=== PATIENT | male | born 1945 | race Caucasian/White ===

== ENCOUNTER 2024-03-21 09:52 | Inpatient (IN) | payer OTHER, MEDICARE, SELFPAY ==
[2024-03-21] VITALS (119 sets, daily range): BP systolic 73–135; BP diastolic 36–90; PULSE 66–101; RESP 14–26; TEMP 36.6–36.9; O2SAT 88–100; BMI 42.0
--- NOTE | 2024-03-21 09:58 | ECG_ITS ---
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 Measurements Intervals [place] Rate: 87 P: 0 [place]: 0 QRS: 79 QRSD: 172 T: 16 QT: 390 QTc: 472 Interpretive Statements ATRIAL FIBRILLATION RIGHT BUNDLE BRANCH BLOCK [120+ ms QRS DURATION, UPRIGHT V1, 40+ ms S IN I/aVL/V4/V5/V6] No previous ECG available for comparison Electronically Signed On 03-21-2024 11:17:43 CDT by Kt Huntley M.D. [email or web address] [facility] [email or web address].[employer]/store/[id number] f
--- NOTE | 2024-03-21 10:10 | ECG_ITS ---
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 Measurements Intervals [place] Rate: 84 P: 0 [place]: 0 QRS: 78 QRSD: 171 T: 36 QT: 426 QTc: 505 Interpretive Statements ATRIAL FIBRILLATION RIGHT BUNDLE BRANCH BLOCK [120+ ms QRS DURATION, UPRIGHT V1, 40+ ms S IN I/aVL/V4/V5/V6] No previous ECG available for comparison Electronically Signed On 03-21-2024 11:15:07 CDT by Kt Huntley M.D. [id number] f
--- NOTE | 2024-03-21 10:16 | XR_ITS ---
WS: [id number] XR chest 1V portable [id number] REASON FOR EXAM: dyspnea/cough FINDINGS: Endotracheal tube and nasogastric tube are in proper position. Moderate tortuosity and ectasia of the thoracic aorta. The heart is not significantly enlarged. Mild prominence of the central pulmonary veins. Lungs are hypoexpanded with elevation of both hemidiaphragms most notably on the right. There are interstitial and alveolar lung opacities in the left lower lung field with blunting of the left costophrenic angle. XR/XR chest 1V portable [id number] IMPRESSION: Abnormality in the left lower hemithorax which could represent subacute or acut e pneumonitis. No definite abnormality in the right lung, however portion of the right lung is not included on the examination.
[2024-03-21] MEDS: etomidate 2 mg/mL INJ SDV 10 mL 30 MG IVP (10:23)
[2024-03-21] MEDS: succinylcholine 20 mg/mL SDV 10mL 130 MG IVP (10:24)
[2024-03-21] MEDS: fentaNYL 1,000 MCG/100 ML BAG 5 MCG IV (10:38)
[2024-03-21] MEDS: midazolam hcl 100 MG/100 ML BAG IV (10:39)
--- NOTE | 2024-03-21 10:40 | ED_ITS ---
HPI - Weakness 2 General: Chief complaint: Weakness Stated complaint: weakness Time Seen by Provider: 03/21/24 09:56 History of Present Illness: 78-year-old male presents emergency room complaining of generalized weakness he is unable to stand. When I came to the room patient is on 15 L by nasal cannula he is obtunded. He is tachypneic and difficult to arouse. He denies any chest pain. On 15 L/min by nonrebreather patient has improved desat to the mid 90s but is still breathing 26-28 times per minute initially. 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, medications, co2 retention and pulmonary embolism History of shingles History of ileus post-op anesthesia/opiod related History of prostate cancer History of infection due to extended spectrum beta lactamase (ESBL) producing bacteria klebsiella History of diverticulitis Basal cell carcinoma back History of GI bleed History of kidney stones Spinal stenosis, cervical region C 6/7 Spinal stenosis at L4-L5 level History of pulmonary embolism Right bundle branch block Spondylolisthesis at L4-L5 level Sleep apnea History of gastritis History of prostatitis Psoriasis Macular degeneration Hx of Penelope thyroiditis History of anesthesia reaction Essential (primary) hypertension Dupuytren contracture of both hands Diabetic neuropathy Diabetes mellitus, type II History of cystitis COPD (chronic obstructive pulmonary disease) Compression fracture of L1 vertebra Bladder dysfunction Acquired central alveolar hypoventilation syndrome Atrial fibrillation and flutter Arthritis GERD (gastroesophageal reflux disease) Surgical History Orthopedic aftercare stem cell procedure right knee 2016 History of surgery on integumentary structure (2006) fatty tumor removal from back History of surgery on integumentary structure (1961) submucous resection History of surgery (2015) gluteus medius repair with gluteus naomy right hip S/P Botox injection bladder 2017, 2018, 2019 Status post right foot surgery (1977) bone resection History of incision and drainage (2017) left knee 2018 post knee replacement History of cataract surgery (2015) History of cardiac radiofrequency ablation (2013) History of hand surgery (2013) right hand History of lithotripsy ESWL 2011, 2012 Status post left foot surgery (2011) left great toe Hx of LASIK (2007) History of carpal tunnel release bilateral, right x 2 2011 & 2013, left 2007 Status post trigger finger release (2005) History of repair of right rotator cuff History of arthroscopy of left knee (2004) meniscal tear History of surgery on right wrist (2002) fracture repair and fusion 2002 History of cholecystectomy (2001) History of bowel resection (1999) History of facial surgery (1989) cyst removal History of esophageal surgery (1985) schatzki ring repair History of ventral hernia repair (1984) History of laminectomy L4/5 1975, 1997 History of appendectomy (1961) History of tonsillectomy and adenoidectomy (1954) Status post total bilateral knee replacement left 2014, right 2018 History of left shoulder replacement (11/2022) Physical Exam 2 HENMT: COMMON NORMALS: normocephalic, atraumatic and hearing grossly normal bilaterally HEAD & SCALP: normocephalic and atraumatic Resp: EFFORT & INSPECTION: Yes decreased respiratory effort AUSCULTATION: c rackles and diminished lung sounds Cardio: COMMON NORMALS: regular rate and No murmurs present (Cardio) RATE: regular rate RHYTHM: abnormal rhythm irregularly irregular GI: COMMON NORMALS: Soft to palpation and No hepatosplenomegaly present A USCULTATION: Yes normoactive bowel sounds PALPATION: Yes Soft to palpation, No Tenderness to palpation present (GI), No Guarding due to palpation present (GI) and Yes No hepatosplenomegaly present Extremity: COMMON NORMALS: normal to inspection, capillary refill normal and no calf tenderness Skin: COMMON NORMALS: no rashes or lesions noted GENERAL SKIN EXAM: no rashes or lesions noted Procedures Intubation sedative: Etomidate Mg Given: 30 paralytic: Succinylcholine Mg Given: 120 Laryngoscope: fiber optic video scope ET Tube Size: 8.5 ET Tube Uncuffed: No Tube Secured Depth (cm): 23 Tube Secured Location: teeth Tube Placement Confirmation: visualized tube passing through cords, equal breath sounds bilaterally, no breath sounds over epigastrium and confirmation by capnometry Patient Tolerated Procedure: well Intubation Complications: none Course 2 Vital Signs: Vital signs: Vital Signs Temperature 98.4 F 03/21/24 09:55 Pulse Rate 78 03/21/24 14:44 Respiratory Rate 19 H 03/21/24 14:15 Blood Pressure 111/69 03/21/24 14:44 Pulse Oximetry 96 03/21/24 14:44 Oxygen Delivery Me thod Mechanical Ventil ation 03/21/24 14:15 Fraction of Inspir ed Oxygen 70 03/21/24 12:37 MDM - Weakness Medical Decision Making Patient presents in severe respiratory distress obtunded requiring 15 L/min he was emergently intubated on arrival RSI with etomidate and succinylcholine and started on fentanyl Versed given ketamine please see reports today she feels well. CT shows bilateral pulmonary emboli possible early pneumonia will start on IV antibiotics discussed with hospitalist will start on Lovenox for his PE. he has a history of PE in the past. Admit to ICU currently on ventilator. Medical Records I reviewed the patient's medical records. Lab Data I reviewed the patient's lab results. 03/21/24 11:05 03/21/24 10:50 Radiology Impressions Chest X-Ray 03/21/24 10:16 IMPRESSION: Abnormality in the left lower hemithorax which could represent subacute or acute pneumonitis. No definite abnormality in the right lung, however portion of the right lung is not included on the examination. Chest CTA 03/21/24 12:00 IMPRESSION: 1. Difficult evaluation of the pulmonary arterial system due to motion and extensive streak artifact. Small occlusive pulmonary emboli are highly suspected in the bilateral lower lobe subsegmental branches and I question small occlusive emboli in the right upper lobe subsegmental branches. 2. Question trace bilateral pleural effusions. 3. Consolidations in the bilateral lower lobes. Combination of atelectasis and/or pneumonia should be considered. 4. Bilateral bronchial wall thickening. Acute/chronic bronchitis or reactive airways disease in the differential. 5. Suggestion of mild right heart strain. ADDENDUM: 03/21/24 [id number] I was informed by the [facility] team that MICHAEL RAMOS has the report and has no further questions. Laboratory Results WBC 10.88 10^3/uL (3.29-11.43) 03/21/24 11:05 RBC 3.90 10^6/uL (3.85-5.65) 03/21/24 11:05 Hgb 12.50 g/dL (11.27-16.99) 03/21/24 11:05 Hct 40.7 % (37-53) 03/21/24 11:05 MCV 104.4 fl (82-101) H 03/21/24 11:05 MCH 32.1 pg (27-33) 03/21/24 11:05 MCHC 30.7 g/dL (30-55) 03/21/24 11:05 RDW 14.6 % (12.1-15.1) 03/21/24 11:05 Plt Count 210 10^3/cmm (157-399) 03/21/24 11:05 MPV 10.7 fL (7.4-10.4) H 03/21/24 11:05 Neut % (Auto) 83.3 % 03/21/24 11:05 Lymph % (Auto) 6.4 % 03/21/24 11:05 Scott % (Auto) 9.4 % 03/21/24 11:05 Eos % (Auto) 0.1 % 03/21/24 11:05 Baso % (Auto) 0.4 % 03/21/24 11:05 Neut # (Auto) 9.07 10^3/uL (1.8-7.7) H 03/21/24 11:05 Lymph # (Auto) 0.7 10^3/uL (0.8-4.8) L 03/21/24 11:05 Scott # (Auto) 1.0 10^3/uL (0.2-0.9) H 03/21/24 11:05 Eos # (Auto) 0.0 10^3/uL (0.0-0.8) 03/21/24 11:05 Baso # (Auto) 0.0 10^3/uL (0.0-0.1) 03/21/24 11:05 Nucleated RBC % (auto) 0 % 03/21/24 11:05 Nucleated RBCs # 0.0 /100WBC 03/21/24 11:05 Specimen Type Arterial 03/21/24 10:35 Sample Site Radial, left 03/21/24 10:35 ABG pH 7.24 (7.35-7.45) L 03/21/24 10:35 ABG pCO2 64.4 mmHg (35-45) H* 03/21/24 10:35 ABG pO2 103.0 mmHg (80.0-100.0) H 03/21/24 10:35 ABG PO2/FiO2 Ratio 103 03/21/24 10:35 ABG HCO3 27.8 mmol/L (22-26) H 03/21/24 10:35 ABG O2 Saturation 97.1 03/21/24 10:35 ABG Base Excess -0.6 mmol/L (-2.0-2.0) 03/21/24 10:35 Lyndon Test Pos 03/21/24 10:35 A-a O2 Gradient 70.0 mmHg (5-10) H 03/21/24 10:35 Hematocrit 35.4 % (42-52) L 03/21/24 10:35 Hgb O2 Saturation 94.9 % (95-100) L 03/21/24 10:35 Carboxyhemoglobin 1.1 %THgb (0.4-20.1) 03/21/24 10:35 Methemoglobin 1.1 % (0.4-1.5) 03/21/24 10:35 Total Hemoglobin 11.6 g/dL (14-18) L 03/21/24 10:35 Sodium 143.0 mmol/L (131-143) 03/21/24 10:35 Potassium 4.0 mmol/L (3.5-5.0) 03/21/24 10:35 Glucose 138.0 mg/dL (70-115) H 03/21/24 10:35 Ionized Calcium 1.3 mmol/L (1.1-1.4) 03/21/24 10:35 O2 Delivery Device Vent 03/21/24 10:35 FiO2 100.0 % 03/21/24 10:35 Tidal Volume 0.50 03/21/24 10:35 PEEP 8.0 cmH20 03/21/24 10:35 Budget Director ID Cak 03/21/24 10:35 Sodium 140 mmol/L (136-145) 03/21/24 10:50 Potassium 4.2 mmol/L (3.5-5.1) 03/21/24 10:50 Chloride 103 mmol/L (98-107) 03/21/24 10:50 Carbon Dioxide 19 mmol/L (22-29) L 03/21/24 10:50 Anion Gap 22.2 (5-19) H 03/21/24 10:50 BUN 28 mg/dL (8-23) H 03/21/24 10:50 Creatinine 1.5 mg/dL (0.7-1.2) H 03/21/24 10:50 GFR Calculation Not Reportable 03/21/24 10:50 Glucose 140 mg/dL (65-115) H 03/21/24 10:50 Calculated Osmolality 298 mOsm/kg (285-295) H 03/21/24 10:50 Lactic Acid 2.2 mmol/L (0.5-2.2) 03/21/24 11:05 Lactic Acid (Sepsis) 0.8 mmol/L (0.5-2.2) 03/21/24 13:59 Calcium 9.2 mg/dL (8.5-10.5) 03/21/24 10:50 Magnesium 2.3 mg/dL (1.7-2.3) 03/21/24 10:50 Total Bilirubin 0.3 mg/dL (0.15-1.2) 03/21/24 10:50 AST 53 U/L (0-40) H 03/21/24 10:50 ALT 76 U/L (0-41) H 03/21/24 10:50 Alkaline Phosphatase 156 U/L (40-130) H 03/21/24 10:50 Creatine Kinase 131 U/L (39-308) 03/21/24 10:50 Troponin T Baseline 52 ng/L (0-15) H 03/21/24 10:50 Troponin T 120 Minute 49.58 ng/L (0-15) H 03/21/24 12:51 Delta Troponin T -2.42 ABS# (0-10) L 03/21/24 12:51 NT-Pro-B Natriuret Pep 3674 pg/mL (0-450) H 03/21/24 10:50 Total Protein 7.2 g/dL (6.6-8.7) 03/21/24 10:50 Albumin 3.9 g/dL (3.5-5.2) 03/21/24 10:50 Globulin 3.3 g/dL (1.3-4.6) 03/21/24 10:50 Lipase 50 U/L (13-60) 03/21/24 10:50 Urine Color Yellow (Yellow) 03/21/24 11:24 Urine Appearance Clear (CLEAR) 03/21/24 11:24 Urine pH 6.5 (5-7) 03/21/24 11:24 Ur Specific [place] 1.015 (1.005-1.030) 03/21/24 11:24 Urine Protein 1+ (Negative) H 03/21/24 11:24 Urine Glucose (UA) 3+ (Normal) H 03/21/24 11:24 Urine Ketones Negative (Negative) 03/21/24 11:24 Urine Blood Neg (Negative) 03/21/24 11:24 Urine Nitrate Negative (Negative) 03/21/24 11:24 Urine Bilirubin Neg (Negative) 03/21/24 11:24 Urine Urobilinogen Norm mg/dL (Negative) 03/21/24 11:24 Ur Leukocyte Esterase Negative (Negative) 03/21/24 11:24 Urine RBC 0-2 /hpf (0-2) 03/21/24 11:24 Urine WBC 0-5 /hpf (0-5) 03/21/24 11:24 Ur Squamous Epith Cells 0-5 /hpf (0-5) 03/21/24 11:24 Amorphous Sediment Not Reportable 03/21/24 11:34 Urine Bacteria None seen /hpf (NONE) 03/21/24 11:24 Hyaline Casts 5.36 /lpf 03/21/24 11:24 Serum Ketones Negative (Negative) 03/21/24 11:05 Coronavirus (PCR) Negative (Negative) 03/21/24 11:58 Influenza A (PCR) Negative (Negative) 03/21/24 11:58 Influenza Type B (PCR) Negative (Negative) 03/21/24 11:58 RSV (PCR) Negative (Negative) 03/21/24 11:58 All radiology interpretation(s) finalized by discharge Discharge Plan Discharge Patient Disposition: Admitted As Inpatient Admit Provider: Maribel Gama Clinical Impression: Acute on chronic respiratory failure with hypoxia and hypercapnia, Diabetes mellitus, type II, Pulmonary embolism, bilateral, Atrial fibrillation, Acute exacerbation of chronic obstructive pulmonary disease Condition: Stable Coding Level of Care Code ED Alterations Tailor for Chg Fwd Related Data Home Medications Medication Instructions Recorded Confirmed acetazolamide 500 mg 500 mg PO DAILY PRN high 03/21/24 03/21/24 capsule,extended release altitude/airplane travel allopurinol 300 mg tablet 300 mg PO DAILY 03/21/24 03/21/24 carvedilol 12.5 mg tablet 12.5 mg PO BID 03/21/24 03/21/24 cephalexin 500 mg capsule 500 mg PO TID 03/21/24 03/21/24 diltiazem HCl 240 mg 250 mg PO DAILY 03/21/24 03/21/24 capsule,extended release 24 hr empagliflozin 10 mg tablet 10 mg PO DAILY 03/21/24 03/21/24 (Jardiance) famotidine 40 mg tablet 40 mg PO QPM 03/21/24 03/21/24 fesoterodine 8 mg tablet,extended 8 mg PO DAILY 03/21/24 03/21/24 release 24 hr fluocinonide 0.05 % topical 1 applic topical PRN PRN atopic 03/21/24 03/21/24 ointment dermatitis fluticasone fur. 100 mcg-umeclid 1 inh inhalation DAILY 03/21/24 03/21/24 62.5 mcg-vilant 25 mcg inhalat.powder (Trelegy Ellipta) fluticasone propionate 50 2 spray intranasal DAILY 03/21/24 03/21/24 mcg/actuation nasal spray,suspension gabapentin 600 mg tablet 600 mg PO QID 03/21/24 03/21/24 levothyroxine 125 mcg tablet 250 mcg PO QAM 03/21/24 03/21/24 metformin 500 mg tablet 500 mg PO QID 03/21/24 03/21/24 metoclopramide HCl 5 mg tablet 5 mg PO TID 03/21/24 03/21/24 mupirocin 2 % topical ointment 1 applic topical BID 03/21/24 03/21/24 omeprazole 40 mg capsule,delayed 40 mg PO DAILY 03/21/24 03/21/24 release oxycodone-acetaminophen 10 mg-325 1 tab PO .Q4-6H PRN Pain 03/21/24 03/21/24 mg tablet potassium citrate 10 mEq (1,080 10 meq PO DAILY 03/21/24 03/21/24 mg) tablet,extended release quetiapine 25 mg tablet 25 mg PO BEDTIME 03/21/24 03/21/24 rosuvastatin 40 mg tablet 40 mg PO DAILY 03/21/24 03/21/24 semaglutide 0.25 mg or 0.5 mg (2 0.25 mg SUBCUT Q7D 03/21/24 03/21/24 mg/3 mL) subcutaneous pen injector ([employer] (TU[employer])empSemantify) torsemide 20 mg tablet 20 mg PO QAM 03/21/24 03/21/24 valsartan 80 1 tab PO QAM 03/21/24 03/21/24 mg-hydrochlorothiazide 12.5 mg tablet vibegron 75 mg tablet (Gemtesa) 75 mg PO DAILY 03/21/24 03/21/24 Allergies Allergy/AdvReac Type Severity Reaction Status Date / Time dulaglutide [From [facility]] Allergy Unknown Verified 03/21/24 10:09
[2024-03-21 10:46] LABS: ABG PH Result 7.24 (7.35-7.45); Arterial Blood Gas Hematocrit 35.4 % (42-52); Base Excess ABG -0.6 mmol/L (-2.0-2.0); Blood Gas Allen Test Pos; Blood Gas Operator Identificat CAK; Blood Gas Sample Site Radial, left; Blood Gas Sample Type Arterial; Carboxyhemoglobin 1.1 %THgb (0.4-20.1); HCO3 ABG 27.8 mmol/L (22-26); HGB O2 Sat 94.9 % (95-100); Ionized Calcium Level - ABG 1.3 mmol/L (1.1-1.4); Methemoglobin 1.1 % (0.4-1.5); Oxygen Device VENT; Oxygen Saturation ABG 97.1; PO2 FiO2 Ratio Arterial Blood 103; Total Hemoglobin 11.6 g/dL (14-18)
[2024-03-21 10:47] LABS: ABG PCO2 64.4 mmHg (35-45)
--- NOTE | 2024-03-21 10:56 | PC.PHAR ---
Pt gets medications via [facility]. Spoke with [facility], who verified all medications, directions, dosage. Days supply and Last refills added in notes
[2024-03-21 11:11] LABS: Basophils % 0.4 %; Eosinophils % 0.1 %; Hematocrit 40.7 % (37-53); Lymphocytes # 0.7 10^3/uL (0.8-4.8); Lymphocytes % 6.4 %; Mean Corpuscular HGB Conc 30.7 g/dL (30-55); Mean Corpuscular Hemoglobin 32.1 pg (27-33); Mean Corpuscular Volume 104.4 fl (82-101); Mean Platelet Volume 10.7 fL (7.4-10.4); Monocytes % 9.4 %; Neutrophils # 9.07 10^3/uL (1.8-7.7); Neutrophils % 83.3 %; Nucleated Red Blood Cells % 0 %; Platelet Count 210 10^3/cmm (157-399); Red Cell Distribution Width 14.6 % (12.1-15.1); White Blood Count 10.88 10^3/uL (3.29-11.43)
[2024-03-21] MEDS: sodium chloride 0.9% 1,000 ML 999 ML IV (11:13)
[2024-03-21 11:22] LABS: Troponin(5th) Baseline 52 ng/L (0-15)
[2024-03-21] MEDS: ketamine 100 mg/mL Inj 5 mL 150 MG IV (11:30)
[2024-03-21 11:33] LABS: Lactic Sepsis W/Reflex 2.2 mmol/L (0.5-2.2)
[2024-03-21 11:34] LABS: Ketone (Acetest) Serum Negative (Negative)
[2024-03-21 11:39] LABS: Charge for UA Resulting for Rev
[2024-03-21 12:00] LABS: Bacteria Urine None Seen /hpf; Hyaline Casts Urine 5.36 /lpf; RBC Urine 0-2 /hpf (0-2); Squamous Epithelial Cell Urine 0-5 /hpf (0-5); WBC Urine 0-5 /hpf (0-5)
--- NOTE | 2024-03-21 12:00 | CTR_ITS ---
PROCEDURE INFORMATION: Exam: CTA Chest With Contrast Exam date and time: 03/21/2024 1:19 PM Age: 78 years old Clinical indication: Shortness of breath; Additional info: Resp failure TECHNIQUE: Imaging protocol: Computed tomographic angiography of the chest with contrast. Exam focused on the arteries. 3D rendering (Not supervised by radiologist): MIP and/or 3D reconstructed images were created by the technologist. Radiation optimization: All CT scans at this facility use at least one of these dose optimization techniques: automated exposure control; mA and/or kV adjustment per patient size (includes targeted exams where dose is matched to clinical indication); or iterative reconstruction. Contrast material: [id number]; Contrast volume: 100 ml; Contrast route: INTRAVENOUS (IV); COMPARISON: CR XR chest 1V portable [id number] 03/21/2024 10:32 AM RADIATION DOSE METRICS: Total DLP (mGy-cm): 539 FINDINGS: Limitations: Extensive streak artifact. Tubes, catheters and devices: Endotracheal tube tip is 5.3 cm above the franck. Nasogastric tube tip projecting in the mid stomach. Pulmonary arteries: Difficult evaluation of the pulmonary arterial system due to motion and extensive streak artifact. Small occlusive pulmonary emboli are highly suspected in the bilateral lower lobe subsegmental branches and I question small occlusive emboli in the right upper lobe subsegmental branches. Aorta: Ectasia of the mid ascending thoracic aorta measuring 4.2 cm. Moderate diffuse calcific atherosclerosis of the aorta. Lungs: Consolidations in the bilateral lower lobes. Bilateral bronchial wall thickening. Platelike atelectasis in the right lung base. Subpleural atelectasis of the dependent portions of the lungs. Pleural spaces: Question trace bilateral pleural effusions. Heart: Calcifications of the aortic valve annulus. Moderate cardiomegaly. Heart RV/LV ratio: 1. Coronary arteries: There is moderate atherosclerotic calcification of the coronary arteries. Lymph nodes: Unremarkable. No enlarged lymph nodes. Liver: Slightly nodular liver contour, concerning for early hepatocellular disease. Correlation with pertinent labs is recommended. Gallbladder and biliary ducts: Cholecystectomy. Bones/joints: Left shoulder arthroplasty. Bone demineralization. Severe multilevel degenerative changes of the spine. There are diffuse enthesopathic changes consistent with benign diffuse idiopathic skeletal hyperostosis (DISH). No acutely displaced fractures. Soft tissues: Unremarkable. CT/CT angio chest PE protcl [id number] IMPRESSION: 1. Difficult evaluation of the pulmonary arterial system due to motion and extensive streak artifact. Small occlusive pulmonary emboli are highly suspected in the bilateral lower lobe subsegmental branches and I question small occlusive emboli in the right upper lobe subsegmental branches. 2. Question trace bilateral pleural effusions. 3. Consolidations in the bilateral lower lobes. Combination of atelectasis and/or pneumonia should be considered. 4. Bilateral bronchial wall thickening. Acute/chronic bronchitis or reactive airways disease in the differential. 5. Suggestion of mild right heart strain.
--- NOTE | 2024-03-21 12:17 | ECG_ITS ---
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 Measurements Intervals [place] Rate: 73 P: 0 SC: 0 QRS: 81 QRSD: 170 T: 47 QT: 419 QTc: 462 Interpretive Statements ATRIAL FIBRILLATION RIGHT BUNDLE BRANCH BLOCK [120+ ms QRS DURATION, UPRIGHT V1, 40+ ms S IN I/aVL/V4/V5/V6] Compared to ECG 03/21/2024 10:10:03 No significant changes Electronically Signed On 03-22-2024 7:51:44 CDT by Kt Huntley M.D. [id number]
[2024-03-21 12:26] LABS: Alanine Aminotransferase 76 U/L (0-41); Albumin Level 3.9 g/dL (3.5-5.2); Alkaline Phosphatase 156 U/L (40-130); Aspartate Amino Transferase 53 U/L (0-40); Blood Urea Nitrogen 28 mg/dL (8-23); Calcium 9.2 mg/dL (8.5-10.5); Carbon Dioxide 19 mmol/L (22-29); Chloride 103 mmol/L (98-107); Creatine Phosphokinase 131 U/L (39-308); Creatinine Clr Calc Pharmacy 60.7476; Globulin 3.3 g/dL (1.3-4.6); Glucose 140 mg/dL (65-115); Lipase 50 U/L (13-60); Magnesium 2.3 mg/dL (1.7-2.3); NT Pro B Type Natriuretic Pept 3674 pg/mL (0-450); Osmolality Calculated 298 mOsm/kg (285-295); Sodium 140 mmol/L (136-145); Total Bilirubin 0.3 mg/dL (0.15-1.2); Total Protein 7.2 g/dL (6.6-8.7)
[2024-03-21 12:28] LABS: Anion Gap 22.2 (5-19); Potassium 4.2 mmol/L (3.5-5.1)
[2024-03-21 12:37] LABS: Urine Appearance Clear (CLEAR); Urine Color Yellow (Yellow); pH Urine 6.5 (5-7)
[2024-03-21 12:38] LABS: Add Urine Culture? No; Bilirubin Urine Neg (Negative); Blood Urine Neg (Negative); Glucose Urine UA 3+ (Normal); Ketones Urine Negative (Negative); Leukocyte Esterase Urine Negative (Negative); Nitrate Urine Negative (Negative); Protein Urine 1+ (Negative); Specific Gravity, Urine 1.015 (1.005-1.030); Urobilinogen Urine Norm (Negative)
[2024-03-21 12:43] LABS: Covid PCR NEGATIVE (Negative); Influenza A NEGATIVE (Negative); Influenza B NEGATIVE (Negative); Respiratory Syncytial Virus Ce NEGATIVE (Negative)
[2024-03-21 12:56] LABS: Reflex Lactate Order REFLEX LACTIC ORDERD
[2024-03-21 13:15] LABS: Troponin 5 2HR 49.58 ng/L (0-15)
[2024-03-21 13:19] LABS: Troponin 5 2HR Delta -2.42 ABS# (0-10)
[2024-03-21] MEDS: iohexol 350 mg/mL 500 mL Btl (per mL) IV (13:22)
--- NOTE | 2024-03-21 13:44 | P.HP_ITS ---
Providers/Chief Complaint 2 Admitting Physician: Maribel Gama MD Primary Care Provider: Dr Ritchie Anne [phone] [place] Chief Complaint: weakness History of Present Illness Leyda Meza is a 78 year old male who presented to the emergency room via EMS with weakness, difficulty breathing. Initial oxygen saturations in the 70s. He was placed on a nonrebreather with improvement. Mentation did not significantly improve despite improvement in oxygen saturations and he was subsequently intubated in the emergency room due to obtundation and hypoxemia. ABG done just after intubation showed 7.24/64.4/103/27.8. History is obtained from Mr. Meza's grandson Who is here as well as from his who is in [place].. and Leyda are from [place] and up here in the area for a hunting trip. They flew on Thursday, stayed in [place] Thursday night and then drove to [place] on Thursday. They did go out hunting on Thursday night, but Leyda was in 4x4 and not walking around much at all. From talking with it sounds like Leyda may have gotten his medications mixed up just a little bit the last couple of days. Sounds like he took both his daytime medicines for today and his nighttime medicines for last evening last night. He did take some medications this morning also. Leyda was not as alert today and was so weak when attempting to get up this morning that it required more than 1 person to help him. With the degree of weakness he was experiencing along with him being lethargic the ambulance was ultimately called. In talking with , it sounds like on Thursday night Mr. Meza's cpap or oxygen were not working correctly. He is on CPAP with oxygen at night usually. He does not require oxygen during the day. His sleep thursday night was poor. The oxygen and cpap set up seemed better last evening when going to bed. Leyda has extensive past medical history as outlined below. Significant findings include history of bilateral PE on chronic anticoagulation, issues with respiratory failure related to medications, CO2 retention and altitude in the past. He has known alveolar hypoventilation syndrome and sleep apnea is already indicated along with COPD. Home medications include several sedating medicines such as oxycodone, quetiapine, alprazolam. Leyda also has significant issues with bowel and bladder function related to history of ileus and prostate cancer. No recent hospitalizations or surgeries. Last known procedure was bladder Botox injection last month. I attempted to contact patient's primary care physician Dr. Ritchie Cullen but had to leave a voicemail. No report of fever. No other symptoms reported. Given prior history CTA of the chest was done. This showed suspected small occlusive pulmonary emboli in bilateral lower lobes subsegmentally as well as potentially in the right upper lobe subsegmental branches. Study was limited due to motion and streak artifact. Consolidations in both lower lobes combination of atelectasis and/or pneumonia considered along with bronchial wall thickening and suggestions of right heart strain. Treatment dose Lovenox was administered and patient is being admitted to the intensive care unit. Past medical history and medication list were obtained from printed papers supplied by and reviewed with patient's . Review of Systems 2 General: Reports: ROS unobtainable due to endotracheal tube, ROS unobtainable due to medical condition and Other (ROS as per HPI or as otherwise noted here) Medications/Allergies Home Medications Medication Instructions Recorded Confirmed Last Taken Type A-Reds2 1 tab PO BID 03/21/24 03/21/24 Unknown History Magnesium Citrate Gummie 204 mg PO DAILY 03/21/24 03/21/24 Unknown History Vitamin C Gummie 750 mg PO DAILY@12 03/21/24 03/21/24 Unknown History acetazolamide 500 mg 500 mg PO DAILY PRN high 03/21/24 03/21/24 Unknown History capsule,extended release altitude/airplane travel albuterol sulfate 2.5 mg/3 mL 2.5 mg inhalation QID PRN 03/21/24 03/21/24 Unknown History (0.083 %) solution for nebulization Shortness Of Breath albuterol sulfate 90 mcg/actuation 2 puff inhalation QID PRN Sleep 03/21/24 03/21/24 Unknown History aerosol inhaler allopurinol 300 mg tablet 300 mg PO DAILY 03/21/24 03/21/24 Unknown History alprazolam 0.5 mg tablet 0.5 mg PO BEDTIME PRN Sleep 03/21/24 03/21/24 Unknown History amoxicillin 500 mg capsule 2,000 mg PO DIRECTED PRN before 03/21/24 03/21/24 Unknown History denatl procedures aspirin 81 mg tablet,delayed 81 mg PO BEDTIME 03/21/24 03/21/24 Unknown History release carvedilol 12.5 mg tablet 12.5 mg PO BID 03/21/24 03/21/24 Unknown History cephalexin 500 mg capsule 500 mg PO TID 03/21/24 03/21/24 Unknown History cholecalciferol (vitamin D3) 50 50 mcg PO DAILY 03/21/24 03/21/24 Unknown History mcg (2,000 unit) capsule (Vitamin D3) colchicine 0.6 mg tablet 0.3 mg PO DAILY PRN gout 03/21/24 03/21/24 Unknown History cyanocobalamin (vitamin B-12) 1,000 mcg PO DAILY 03/21/24 03/21/24 Unknown History 1,000 mcg tablet (Vitamin B-12) diclofenac sodium 1 % topical gel 2 g topical QID PRN neuropathy pain 03/21/24 03/21/24 Unknown History diltiazem HCl 240 mg 240 mg PO DAILY 03/21/24 03/21/24 Unknown History capsule,extended release 24 hr docusate sodium 50 mg capsule See Rx Instructions .Route .COMPLEX 03/21/24 03/21/24 Unknown History empagliflozin 10 mg tablet 10 mg PO DAILY 03/21/24 03/21/24 Unknown History (Jardiance) famotidine 40 mg tablet 40 mg PO QPM 03/21/24 03/21/24 Unknown History ferrous sulfate 325 mg (65 mg 325 mg PO BID@08,12 03/21/24 03/21/24 Unknown History iron) tablet fesoterodine 8 mg tablet,extended 8 mg PO DAILY 03/21/24 03/21/24 Unknown History release 24 hr fluocinonide 0.05 % topical 1 applic topical BID PRN atopic 03/21/24 03/21/24 Unknown History ointment dermatitis fluticasone fur. 100 mcg-umeclid 1 inh inhalation DAILY 03/21/24 03/21/24 Unknown History 62.5 mcg-vilant 25 mcg inhalat.powder (Trelegy Ellipta) fluticasone propionate 50 2 spray intranasal DAILY 03/21/24 03/21/24 Unknown History mcg/actuation nasal spray,suspension gabapentin 600 mg tablet 600 mg PO QID 03/21/24 03/21/24 Unknown History inulin 2 gram chewable tablet 4 g PO DAILY 03/21/24 03/21/24 Unknown History (Fiber Gummies) ipratropium bromide 42 mcg (0.06 2 spray intranasal BID 03/21/24 03/21/24 Unknown History %) nasal spray levothyroxine 125 mcg tablet 250 mcg PO QAM 03/21/24 03/21/24 Unknown History metformin 500 mg tablet 500 mg PO QID 03/21/24 03/21/24 Unknown History metoclopramide HCl 5 mg tablet 5 mg PO TID 03/21/24 03/21/24 Unknown History milk thistle seed extract 250 mg 250 mg PO TID 03/21/24 03/21/24 Unknown History capsule pysyasshiufo-yomsowoj-fjviqy tablet 1 tab PO DAILY 03/21/24 03/21/24 Unknown History mupirocin 2 % topical ointment 1 applic topical BID 03/21/24 03/21/24 Unknown History omeprazole 40 mg capsule,delayed 40 mg PO DAILY 03/21/24 03/21/24 Unknown History release oxycodone-acetaminophen 10 mg-325 1 tab PO Q4H PRN Pain 03/21/24 03/21/24 Unknown History mg tablet peppermint oil 90 mg 180 mg PO .DINNER 03/21/24 03/21/24 Unknown History capsule,delayed,extended release (IBgard) polyethylene glycol 3350 17 gram 17 g PO DAILY PRN Constipation 03/21/24 03/21/24 Unknown History oral powder packet (Miralax) potassium citrate 10 mEq (1,080 10 meq PO BID 03/21/24 03/21/24 Unknown History mg) tablet,extended release propylene glycol 0.6 % eye drops 1 drp ophthalmic (eye) BID PRN 03/21/24 03/21/24 Unknown History (Systane Complete) itchy yes quetiapine 25 mg tablet 25 mg PO BEDTIME 03/21/24 03/21/24 Unknown History rivaroxaban 20 mg tablet 20 mg PO QPM 03/21/24 03/21/24 Unknown History rosuvastatin 40 mg tablet 40 mg PO BEDTIME 03/21/24 03/21/24 Unknown History semaglutide 0.25 mg or 0.5 mg (2 0.25 mg SUBCUT Q7D 03/21/24 03/21/24 Unknown History mg/3 mL) subcutaneous pen injector (Ozempic) sennosides 8.6 mg capsule (senna) 17.2 mg PO BEDTIME 03/21/24 03/21/24 Unknown History simethicone 125 mg capsule 250 mg PO BEDTIME 03/21/24 03/21/24 Unknown History torsemide 20 mg tablet 20 mg PO QAM 03/21/24 03/21/24 Unknown History valsartan 80 1 tab PO QAM 03/21/24 03/21/24 Unknown History mg-hydrochlorothiazide 12.5 mg tablet vibegron 75 mg tablet (Gemtesa) 75 mg PO BEDTIME 03/21/24 03/21/24 Unknown History zinc gluconate 50 mg tablet 50 mg PO DAILY@12 03/21/24 03/21/24 Unknown History Allergies Allergy/AdvReac Type Severity Reaction Status Date / Time dulaglutide [From [facility]] Allergy Unknown Verified 03/21/24 10:09 Additional Medication Information Pt appears to have possibly mixed up some medications last couple days taking morning ones in evening along with evening one. PFSH Acute 2 PFSH: Medical History (Updated 03/21/24 @ 16:58 by Maribel Gama MD) History of sciatica History of respiratory failure depression from altitude, medications, co2 retention and pulmonary embolism History of shingles History of ileus post-op anesthesia/opiod related History of prostate cancer History of infection due to extended spectrum beta lactamase (ESBL) producing bacteria klebsiella History of diverticulitis Basal cell carcinoma back History of GI bleed History of kidney stones Spinal stenosis, cervical region C 6/7 Spinal stenosis at L4-L5 level History of pulmonary embolism Right bundle branch block Spondylolisthesis at L4-L5 level Sleep apnea uses cpap with oxygen at night History of gastritis History of prostatitis Psoriasis Macular degeneration Hx of Penelope thyroiditis History of anesthesia reaction Essential (primary) hypertension Dupuytren contracture of both hands Diabetic neuropathy Diabetes mellitus, type II History of cystitis COPD (chronic obstructive pulmonary disease) Compression fracture of L1 vertebra Bladder dysfunction Acquired central alveolar hypoventilation syndrome Atrial fibrillation and flutter Arthritis GERD (gastroesophageal reflux disease) Surgical History (Updated 03/21/24 @ 15:56 by Maribel Gama MD) Orthopedic aftercare stem cell procedure right knee 2016 History of surgery on integumentary structure (2006) fatty tumor removal from back History of surgery on integumentary structure (196) submucous resection History of surgery (2015) gluteus medius repair with gluteus naomy right hip S/P Botox injection bladder 2017, 2018, 2019, 2023 (February) Status post right foot surgery (1977) bone resection History of incision and drainage (2017) left knee 2018 post knee replacement History of cataract surgery (2015) History of cardiac radiofrequency ablation (2013) History of hand surgery (2013) right hand History of lithotripsy ESWL 2011, 2012 Status post left foot surgery (2011) left great toe Hx of LASIK (2007) History of carpal tunnel release bilateral, right x 2 2011 & 2013, left 2007 Status post trigger finger release (2005) History of repair of right rotator cuff History of arthroscopy of left knee (2004) meniscal tear History of surgery on right wrist (2002) fracture repair and fusion 2002 History of cholecystectomy (2001) History of bowel resection (1999) History of facial surgery (1989) cyst removal History of esophageal surgery (1985) schatzki ring repair History of ventral hernia repair (1984) History of laminectomy L4/5 1975, 1997 History of appendectomy (1961) History of tonsillectomy and adenoidectomy (1954) Status post total bilateral knee replacement left 2014, right 2018 History of left shoulder replacement (11/2022) Other PFSH information: Supplemental PFS Information: LIV[place] IN [place], in area visiting for hunting trip Had some drinks last night Does not smoke now Vitals/I&O/Wt Last Vital Signs Temp 98.4 F 03/21/24 09:55 Pulse 74 03/21/24 13:00 Resp 16 03/21/24 13:00 BP 105/69 03/21/24 13:00 Pulse Ox 97 03/21/24 13:00 O2 Del Method Mechanical Ventilation 03/21/24 12:00 FiO2 70 03/21/24 12:37 03/20/24 03/21/24 03/21/24 22:59 06:59 14:59 Intake Total 1002.667 / 1002.667 Balance 1002.667 / 1002.667 Weight last 48 hrs Weight 144.696 kg Physical Exam 2 Narrative: Patient is intubated and sedated. Pupils are equal bilaterally. Oropharynx with moist membranes. Neck is supple. Lungs with decreased breath sounds posteriorly, clear anteriorly. Irregular rhythm. distant heart sounds. Abdomen is soft, positive bowel sounds. A few small ecchymoses noted laterally. Aguila catheter is in place with normal external genitalia, clean groin. Thenar wasting noted bilaterally. 2+ pitting edema in the lower extremities. Several anterior calderon bruises and skin tears with dried blood, all small. Has chronic sun exposure changes to her arms and legs. Feet are white by comparison. Brisk capillary refill with faint pulses dorsalis pedis bilaterally. Handgrip equal bilaterally later during the course of my evaluation and care. Urinary Catheter Management: Aguila: Cath Placed During This Visit: yes Urinary Catheter Date of Insertion: 03/21/24 Urinary Catheter Time of Insertion: 11:33 Data 03/21/24 20:10 03/21/24 10:50 Other Labs: Radiology Impressions CTA chest 03/21/2024 IMPRESSION: 1. Difficult evaluation of the pulmonary arterial system due to motion and extensive streak artifact. Small occlusive pulmonary emboli are highly suspected in the bilateral lower lobe subsegmental branches and I question small occlusive emboli in the right upper lobe subsegmental branches. 2. Question trace bilateral pleural effusions. 3. Consolidations in the bilateral lower lobes. Combination of atelectasis and/or pneumonia should be considered. 4. Bilateral bronchial wall thickening. Acute/chronic bronchitis or reactive airways disease in the differential. 5. Suggestion of mild right heart strain. Chest X-Ray 03/21/24 10:16 IMPRESSION: Abnormality in the left lower hemithorax which could represent subacute or acute pneumonitis. No definite abnormality in the right lung, however portion of the right lung is not included on the examination. Laboratory Results WBC 10.88 10^3/uL (3.29-11.43) 03/21/24 11:05 RBC 3.90 10^6/uL (3.85-5.65) 03/21/24 11:05 Hgb 12.50 g/dL (11.27-16.99) 03/21/24 11:05 Hct 40.7 % (37-53) 03/21/24 11:05 MCV 104.4 fl (82-101) H 03/21/24 11:05 MCH 32.1 pg (27-33) 03/21/24 11:05 MCHC 30.7 g/dL (30-55) 03/21/24 11:05 RDW 14.6 % (12.1-15.1) 03/21/24 11:05 Plt Count 210 10^3/cmm (157-399) 03/21/24 11:05 MPV 10.7 fL (7.4-10.4) H 03/21/24 11:05 Neut % (Auto) 83.3 % 03/21/24 11:05 Lymph % (Auto) 6.4 % 03/21/24 11:05 [place] % (Auto) 9.4 % 03/21/24 11:05 Eos % (Auto) 0.1 % 03/21/24 11:05 Baso % (Auto) 0.4 % 03/21/24 11:05 Neut # (Auto) 9.07 10^3/uL (1.8-7.7) H 03/21/24 11:05 Lymph # (Auto) 0.7 10^3/uL (0.8-4.8) L 03/21/24 11:05 [place] # (Auto) 1.0 10^3/uL (0.2-0.9) H 03/21/24 11:05 Eos # (Auto) 0.0 10^3/uL (0.0-0.8) 03/21/24 11:05 Baso # (Auto) 0.0 10^3/uL (0.0-0.1) 03/21/24 11:05 Nucleated RBC % (auto) 0 % 03/21/24 11:05 Nucleated RBCs # 0.0 /100WBC 03/21/24 11:05 Specimen Type Arterial 03/21/24 10:35 Sample Site Radial, left 03/21/24 10:35 ABG pH 7.24 (7.35-7.45) L 03/21/24 10:35 ABG pCO2 64.4 mmHg (35-45) H* 03/21/24 10:35 ABG pO2 103.0 mmHg (80.0-100.0) H 03/21/24 10:35 ABG PO2/FiO2 Ratio 103 03/21/24 10:35 ABG HCO3 27.8 mmol/L (22-26) H 03/21/24 10:35 ABG O2 Saturation 97.1 03/21/24 10:35 ABG Base Excess -0.6 mmol/L (-2.0-2.0) 03/21/24 10:35 [place] Test Pos 03/21/24 10:35 A-a O2 Gradient 70.0 mmHg (5-10) H 03/21/24 10:35 Hematocrit 35.4 % (42-52) L 03/21/24 10:35 Hgb O2 Saturation 94.9 % (95-100) L 03/21/24 10:35 Carboxyhemoglobin 1.1 %THgb (0.4-20.1) 03/21/24 10:35 Methemoglobin 1.1 % (0.4-1.5) 03/21/24 10:35 Total Hemoglobin 11.6 g/dL (14-18) L 03/21/24 10:35 Sodium 143.0 mmol/L (131-143) 03/21/24 10:35 Potassium 4.0 mmol/L (3.5-5.0) 03/21/24 10:35 Glucose 138.0 mg/dL (70-115) H 03/21/24 10:35 Ionized Calcium 1.3 mmol/L (1.1-1.4) 03/21/24 10:35 O2 Delivery Device Vent 03/21/24 10:35 FiO2 100.0 % 03/21/24 10:35 Tidal Volume 0.50 03/21/24 10:35 PEEP 8.0 cmH20 03/21/24 10:35 Personalization Specialist ID Cak 03/21/24 10:35 Sodium 140 mmol/L (136-145) 03/21/24 10:50 Potassium 4.2 mmol/L (3.5-5.1) 03/21/24 10:50 Chloride 103 mmol/L (98-107) 03/21/24 10:50 Carbon Dioxide 19 mmol/L (22-29) L 03/21/24 10:50 Anion Gap 22.2 (5-19) H 03/21/24 10:50 BUN 28 mg/dL (8-23) H 03/21/24 10:50 Creatinine 1.5 mg/dL (0.7-1.2) H 03/21/24 10:50 GFR Calculation Not Reportable 03/21/24 10:50 Glucose 140 mg/dL (65-115) H 03/21/24 10:50 Calculated Osmolality 298 mOsm/kg (285-295) H 03/21/24 10:50 Lactic Acid 2.2 mmol/L (0.5-2.2) 03/21/24 11:05 Calcium 9.2 mg/dL (8.5-10.5) 03/21/24 10:50 Magnesium 2.3 mg/dL (1.7-2.3) 03/21/24 10:50 Total Bilirubin 0.3 mg/dL (0.15-1.2) 03/21/24 10:50 AST 53 U/L (0-40) H 03/21/24 10:50 ALT 76 U/L (0-41) H 03/21/24 10:50 Alkaline Phosphatase 156 U/L (40-130) H 03/21/24 10:50 Creatine Kinase 131 U/L (39-308) 03/21/24 10:50 Troponin T Baseline 52 ng/L (0-15) H 03/21/24 10:50 Troponin T 120 Minute 49.58 ng/L (0-15) H 03/21/24 12:51 Delta Troponin T -2.42 ABS# (0-10) L 03/21/24 12:51 NT-Pro-B Natriuret Pep 3674 pg/mL (0-450) H 03/21/24 10:50 Total Protein 7.2 g/dL (6.6-8.7) 03/21/24 10:50 Albumin 3.9 g/dL (3.5-5.2) 03/21/24 10:50 Globulin 3.3 g/dL (1.3-4.6) 03/21/24 10:50 Lipase 50 U/L (13-60) 03/21/24 10:50 Urine Color Yellow (Yellow) 03/21/24 11:24 Urine Appearance Clear (CLEAR) 03/21/24 11:24 Urine pH 6.5 (5-7) 03/21/24 11:24 Ur Specific [place] 1.015 (1.005-1.030) 03/21/24 11:24 Urine Protein 1+ (Negative) H 03/21/24 11:24 Urine Glucose (UA) 3+ (Normal) H 03/21/24 11:24 Urine Ketones Negative (Negative) 03/21/24 11:24 Urine Blood Neg (Negative) 03/21/24 11:24 Urine Nitrate Negative (Negative) 03/21/24 11:24 Urine Bilirubin Neg (Negative) 03/21/24 11:24 Urine Urobilinogen Norm mg/dL (Negative) 03/21/24 11:24 Ur Leukocyte Esterase Negative (Negative) 03/21/24 11:24 Urine RBC 0-2 /hpf (0-2) 03/21/24 11:24 Urine WBC 0-5 /hpf (0-5) 03/21/24 11:24 Ur Squamous Epith Cells 0-5 /hpf (0-5) 03/21/24 11:24 Amorphous Sediment Not Reportable 03/21/24 11:34 Urine Bacteria None seen /hpf (NONE) 03/21/24 11:24 Hyaline Casts 5.36 /lpf 03/21/24 11:24 Serum Ketones Negative (Negative) 03/21/24 11:05 Coronavirus (PCR) Negative (Negative) 03/21/24 11:58 Influenza A (PCR) Negative (Negative) 03/21/24 11:58 Influenza Type B (PCR) Negative (Negative) 03/21/24 11:58 RSV (PCR) Negative (Negative) 03/21/24 11:58 Micro: Microbiology 03/21/24 10:45 Blood Culture - Preliminary Blood SPECIMEN COLLECTED 03/21/24 10:50 Blood Culture - Preliminary Blood SPECIMEN COLLECTED A&P Assessment and plan (1) Acute respiratory failure: Hypercapneic and hypoxic, acute on chronic (though unclear if has both chronic hypercapnea and chronic hypoxemia at admission). After reviewing history I strongly suspect that this is due to a combination of CPAP and/or oxygen not working correctly the first night of this hunting trip combined with mixing up his medications the last 24 hours or so, last night and this morning. That said he does have evidence of pulmonary emboli and very well could have missed a dose of his chronic anticoagulation. I do not have prior studies for comparison currently and was not able to directly speak to his primary care provider in [place] today. He is known to have previously had bilateral PEs but this was sometime ago rather than recently making it challenging to know at this point in time. With recent travel acute PE possibility has to be managed. Pneumonia within differential particularly with bilateral lower lobe consolidations although this could be areas of atelectasis. With bronchial wall thickening acute bronchitis another consideration. PCR for COVID, influenza and RSV were all negative so organism would be unknown. He not showing evidence of severe sepsis at admission nor hemoodynamic instability currently, though with sedation has had some lower blood pressures. (2) Pulmonary embolism, bilateral: Present on admission in a gentleman with a history of bilateral PEs in the past for which he is on chronic anticoagulation with Xarelto. Unknown at this time if these are acute versus chronic. Could be either or even both with presentation. (3) Pneumonia: Organism unknown, bilateral lower loves, present on admission, on antibiotics orally prior to admission, history of ESBL Klebsiella. (4) Sleep apnea: Uses CPAP at home with oxygen at night. Some difficulty with set up Thursday night. Not usually onoxygen during day. (5) COPD (chronic obstructive pulmonary disease): Acute exacerbation on chronic COPD. CT imaging with bronchial thickening. Chronically on trelogy ellipita, albuterol. (6) Diabetes mellitus, type II: Non insulin requiring with diabetic peripheral neuropathy, possible CKD stage 2. Chrnoicallly on jardiance, metformin and ozempic, takes gabapentin for neuoropathy pain. (7) Atrial fibrillation: Chronic atrial fibrillation/flutter, on diltiazem chronically along with xarelto. Also on betablocker. (8) Essential (primary) hypertension: Chronically on carvedilol, torsemide + potassium, valsartan-HCTZ in addition to aforementioned diltiazem. At admission, and after intubation/sedation, soft blood pressures noted. 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: Chronically on levothyroxine (10) GERD (gastroesophageal reflux disease): Chronically on PPI plus H2 oscar (11) History of prostate cancer: Has urinary issues, history of infections (12) Bladder dysfunction: On fesoterodine and vibegron, gets botox in bladder (13) High risk medication use: In addition to chronic anticoagulation, on ozempic and has history of ileus, on chronic reglan (14) History of GI bleed: in the past, along with bleeding from prostate and bladder issues, hemoglobin currently good with no outward signs of bleeding (15) History of infection due to extended spectrum beta lactamase (ESBL) producing bacteria: Klebsiella noted in paper records with patient Plan Acute kidney injury vs CKD 2 Elevated BNP without defined history of CHF, though is on diuretics chronically Elevated baseline troponin without positive delta troponin at 2 hrs Elevated transaminases, mild Hyperlipidemia on statin Arthritis history on as needed opiods Gout history on allopurinol Has PRN alprazolam, seroquel, diclofenac gel, aspirin, ferrous sulfate, On cephalexin and mupirocin prior to admission for skin wounds to legs related to fall last week Inpatient admission Continue ventilator care, weaning as able; if this is more medication/hypercapnea effect, should be able to extubate sooner Adjust sedation with plan for sedation break in am to trial weaning Monitor blood pressures for need to treat hypotension for adequate sedation and for further adjustment in usual antihypertensive regimen Lovenox at treatment dose for now, holding oral Xarelto Need to attempt to reach out to primary care provider again tomorrow at phone number shown above for Dr. Cullen to clarify if most recently available CT imaging showed similar pattern of pulmonary emboli Check echocardiogram to further evaluate findings of right heart strain and discern ejection fraction Breathing treatments including inhaled steroids Systemic steroids Broad-spectrum antibiotics currently with Zosyn, Levaquin and vancomycin Blood and sputum cultures have been collected Will likely need transition to BiPAP and then home CPAP/oxygen set up upon extubation Currently holding home Jardiance, metformin and Ozempic Sliding scale insulin as needed for diabetes Continuing home gabapentin Will continue immediate release diltiazem equivalent in place of usual extended release dosing for now Lower dose of home coreg Continue serial cardiac enzymes Currently holding home torsemide and valsartan/HCTZ Monitor overall volume status closely Continue Aguila catheter for close monitoring of urine output Fluids at low rate overnight May resume diuretics in am if blood pressures stable Monitor renal function closely Continue home levothyroxine Continue home PPI, usually also takes an H2 oscar which I have presently held Normally on 2 urinary agents that we do not have on formulary including fesoterodine and vibegron, will have to monitor once aguila discontinued Continuing home Reglan secondary to chronic issues with GI motility and history of ileus with anesthesia/opiates Continue stool softeners and laxatives Holding home Ozempic Monitor for signs of GI or other bleeding as we are unsure when he last took his Xarelto and is therefore at risk of bleeding if was double dosed, discussed with grandson risk of not giving additional anticoagulation in the setting of known pulmonary emboli for which we have no way to know exact chronicity at this moment in time Continuing home allopurinol Recheck LFTs in am Continue home statin, aspirin, allopurinol Home oxycodone held while on fentanyl drip for sedation Have held multiple vitamins/supplementsduring acute illness Was on cephalexin and mupirocin for skin prior to DC; could consider resumption depending on clinical course vs discontinuing upon discharge Plans reviewed with nursing staff and respiratory VTE prophylaxis: VTE present on admission GI Prophylaxis: PPI Antibiotics: Zosyn, levaquin and Vanc started 03/21, on cephalexin prior to admission x 4 days Pending studies: echo, 6hr troponin Telemetry: ordered Aguila: in place to monitor urine output in ICU patient on vent wit possible SHARON Line(s): peripheral IVs Disposition plan: Home with outpatient follow up though will depend on clinical course. Pt is from [place] and here on a hunting trip with lizzy. Code Status: Full Code Supportive care otherwise Findings, concerns and plans were discussed with Jr who is present and Mrs Meza on the phone as well as with Mr Meza later when he was awakening and following some of converstation. Family given an opportunity to ask questions Attestations 2 Medical Necessity Statement*: Anticipated stay greater than two midnights in this patient presenting with hypercapnic and hypoxic respiratory failure requiring intubation shortly after arrival to the emergency room. [place] and has a complex medical history as outlined throughout this note. Imaging studies show evidence of bilateral subsegmental PE along with lower lobe consolidation and bronchial wall thickening. I suspect that presentation is primarily due to CPAP not working adequately at least 1 night during this trip plus mixing up of chronic home medications in the last 24 hours but am unable to rule out at this time acute contribution from PE, pneumonia, COPD exacerbation. Additionally patient has elevated BUN and creatinine, elevated BNP, elevated baseline troponin and mildly elevated transaminases. 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 further issues and plans as noted above. In addition to intubation and mechanical ventilation, he is on anticoagulation, IV antibiotics, low volume IVFs and being closely monitored. 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
[2024-03-21] MEDS: piperacillin-tazobactam 3.375 GM in sodium chloride 0.9% (plus) 50 ML IV ×2 (14:14→21:43)
[2024-03-21] MEDS: methylPREDNISolone sod succ 125 mg/2 mL INJ IVP (14:14)
[2024-03-21] MEDS: enoxaparin 150 mg/mL Syringe SUBCUT (14:16)
[2024-03-21 14:46] LABS: Lactic Acid level (Lactate) 0.8 mmol/L (0.5-2.2)
[2024-03-21] MEDS: ipratropium-albuterol 3 mL Neb INHALATION ×3 (14:52→20:11)
[2024-03-21 15:10] LABS: ABG PH Result 7.35 (7.35-7.45); Alveolar-Arterial Oxygen Gradi 30.7 mmHg (5-10); Base Excess ABG 1.4 mmol/L (-2.0-2.0); Blood Gas Allen Test Pos; Blood Gas Operator Identificat CAK; Blood Gas Sample Site Radial, left; Blood Gas Sample Type Arterial; HCO3 ABG 27.6 mmol/L (22-26); HGB O2 Sat 89.2 % (95-100); Ionized Calcium Level - ABG 1.3 mmol/L (1.1-1.4); Oxygen Device VENT; PO2 FiO2 Ratio Arterial Blood 122; Potassium Level - ABG 3.5 mmol/L (3.5-5.0); Total Hemoglobin 10.8 g/dL (14-18)
[2024-03-21 15:26] LABS: Glucose Point of Care 117 mg/dL (70-110)
--- NOTE | 2024-03-21 15:34 | PC.NURSE ---
Received patient from ER staff. Patient is sedated on 2mg/hr of versed and 100mcg/hr of fentanyl. Unresponsive. on a ventilator. BP: 104/77, HR: 81, SPO2: 93%. Temp:97.6. belongings included a shirt and jacked which have both been cut, shoes, and a hat. BP is trending down. Nurse reduced sedation. Dr luo is at bedside and gave order for NS bolus of 250mL if no improvement in 30 minutes.
--- NOTE | 2024-03-21 16:11 | USCV_ITS ---
Jaron Meza Age: 78 Gender: M : 1945 Exam Date: 03/21/2024 22:26 Ordering Phys: Maribel Gama MD Technologist: LORA Exam Location: [facility] [place] Indication: respiratory failure, bilateral pulmonary emboli. Patient is on ventilator in ICU-12. BP: 109 / 72 HR: 82 Rhythm: Atrial fibrillation Technical Quality: Adequate MEASUREMENTS (Male / Female) Normal Values 2D ECHO LV Diastolic Diameter PLAX 4.6 cm 4.2 - 5.9 / 3.9 - 5.3 cm IVS Diastolic Thickness 1.6 cm 0.6 - 1.0 / 0.6 - 0.9 cm IVS Systolic Thickness 1.8 cm LVPW Diastolic Thickness 2.3 cm 0.6 - 1.0 / 0.6 - 0.9 cm LVPW Systolic Thickness 2.7 cm LVOT Diameter 2.6 cm LV Ejection Fraction 2D Teich 64.4 % LV Ejection Fraction MOD 4C 61.1 % LV Ejection Fraction MOD 2C 54.5 % LV Ejection Fraction 2C AL 55.4 % LA Diameter 5.9 cm LA Sys Volume AL 138.0 cm cubed LA Sys Volume Index AL 49.8 cm cubed/m squared Aorta at Sinotubular Diameter 4.0 cm IVC Diameter 1.8 cm M-MODE LA Ao Ratio MM 1.5 AV Cusp Separation MM 2.4 cm DOPPLER AV Peak Velocity 112.0 cm/s LVOT Peak Velocity 75.0 cm/s AV Area Cont Eq vti 3.9 cm squared AV Area Cont Eq pk 3.5 cm squared MV Peak Velocity 107.0 cm/s MV Area PHT 4.6 cm squared Mitral E to A Ratio 0.0 TV Peak Velocity 252.0 cm/s TR Peak Velocity 267.0 cm/s TR Peak Gradient 28.5 mmHg TV Peak E Velocity 49.0 cm/s Right Atrial Pressure 10.0 mmHg Pulmonary Artery Systolic Pressu 38.5 mmHg PV Peak Velocity 113.0 cm/s FINDINGS Left Ventricle Normal left ventricular size and systolic function, EF 55%.no regional wall motion abnormalities. Grade II/IV diastolic dysfunction, moderately elevated filling pressures. Right Ventricle The right ventricle is normal in size and function. Right Atrium The right atrium is normal in size. Left Atrium Mildly increased left atrial size. Mitral Valve Thickened mitral valve. Aortic Valve No gross abnormalities noted Tricuspid Valve Mild tricuspid valve regurgitation. Pulmonic Valve Trace pulmonary valve regurgitation. Pericardium Normal pericardium without effusion. Aorta Normal aortic annulus size. IVC Normal inferior vena cava. CONCLUSIONS Normal left ventricular size and systolic function, EF 55%. Type II diastolic dysfunction. No regional wall motion abnormalities. Mildly increased left atrial size. Thickened mitral valve. Mild tricuspid valve regurgitation. Estimated pulmonary artery peak systolic pressure 39 mmHg Trace pulmonary valve regurgitation. There is no pericardial effusion. No similar previous studies are available for comparison Dr Antonio Lowery MD [facility] (Electronically Signed) Final Date: 22 March 2024 16:27 S
--- NOTE | 2024-03-21 16:17 | ECG_ITS ---
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 Measurements Intervals [place] Rate: 79 P: 0 MI: 0 QRS: 78 QRSD: 170 T: 23 QT: 424 QTc: 487 Interpretive Statements ATRIAL FIBRILLATION RIGHT BUNDLE BRANCH BLOCK [120+ ms QRS DURATION, UPRIGHT V1, 40+ ms S IN I/aVL/V4/V5/V6] Compared to ECG 03/21/2024 12:20:44 No significant changes Electronically Signed On 03-22-2024 7:51:14 CDT by Kt Huntley M.D. [id number]
[2024-03-21] MEDS: metoclopramide 10 mg Tablet 5 MG PO ×2 (16:24→21:48)
[2024-03-21] MEDS: levofloxacin-dextrose 5 % 750 MG/150 ML PREMIX 100 MG IV (16:48)
[2024-03-21 16:57] LABS: Potassium, Radom Urine 46 mmol/L
[2024-03-21 17:21] LABS: Glucose Point of Care 122 mg/dL (70-110)
[2024-03-21] MEDS: propofol 1,000 MG/100 ML INJ 4.28 MG IV (17:21)
--- NOTE | 2024-03-21 17:45 | PHA.VACGOAL ---
Vancomycin Goal - Goal Vancomycin Goal:: 15-20 mg/L Vancomycin Indication:: Pneumonia - Therapy Current therapy:: Pip/Tazo (3.375 IVPB Q8H) Day of therpy:: Day [1]of [] . Actual body weight (kg): 142.5 kg [place] body weight: 78.3 Dosing weight (kg): 142.5 - Data Labs: WBC 10.88 10^3/uL (3.29-11.43) 03/21/24 11:05 RBC 3.90 10^6/uL (3.85-5.65) 03/21/24 11:05 Hgb 12.50 g/dL (11.27-16.99) 03/21/24 11:05 Hct 40.7 % (37-53) 03/21/24 11:05 MCV 104.4 fl (82-101) H 03/21/24 11:05 MCH 32.1 pg (27-33) 03/21/24 11:05 MCHC 30.7 g/dL (30-55) 03/21/24 11:05 RDW 14.6 % (12.1-15.1) 03/21/24 11:05 Sodium 140 mmol/L (136-145) 03/21/24 10:50 Potassium 4.2 mmol/L (3.5-5.1) 03/21/24 10:50 Chloride 103 mmol/L (98-107) 03/21/24 10:50 Carbon Dioxide 19 mmol/L (22-29) L 03/21/24 10:50 Anion Gap 22.2 (5-19) H 03/21/24 10:50 BUN 28 mg/dL (8-23) H 03/21/24 10:50 Creatinine 1.5 mg/dL (0.7-1.2) H 03/21/24 10:50 GFR Calculation Not Reportable 03/21/24 10:50 Last dialysis session:: N/A Drug administration history:: Medications Vancomycin HCl (Vancocin) 1,250 mg in 250 mls @ 166.667 mls/hr IV Q12H TIFFANIE Piperacillin Sod/Tazobactam (Sod 3.375 gm/ Sodium Chloride) 50 mls @ 12.5 mls/hr IV Q8H TIFFANIE; Protocol Treatment plan:: new consult (Pneumonia) Regimen:: 1250 mg IVPB Q12H Follow up:: SCR daily with AM labs
[2024-03-21 17:56] LABS: Troponin 5 6HR 44.75 ng/L (0-15)
[2024-03-21 18:00] LABS: Troponin 5 6HR Delta -7.25 ng/L (0-12)
[2024-03-21] MEDS: enoxaparin 150 mg/mL Syringe 140 MG SUBCUT (18:14)
[2024-03-21] MEDS: vancomycin 1,250 MG/250 ML PIGGYBACK 166.67 MG IV (18:14)
--- NOTE | 2024-03-21 18:57 | PC.NURSE ---
SHift SUmmary: only in ICU for about 3 hours at the time of this note. Patient is resting comfortably, but eaily woken up and will answer yes/no questions and follow commands. CUrrently on 50mcg of fentanyl and 10mcg/kg/min of propofol. REcently transitioned from versed to propofol, as versed wears off he may wake up more.
--- NOTE | 2024-03-21 19:12 | XRR_ITS ---
PROCEDURE INFORMATION: Exam: XR Chest Exam date and time: 03/21/2024 7:36 PM Age: 78 years old Clinical indication: Cough; Additional info: Dyspnea/cough TECHNIQUE: Imaging protocol: Radiologic exam of the chest. Views: 1 view. COMPARISON: CT angio chest PE protcl [id number] 03/21/2024 1:19 PM FINDINGS: Tubes, catheters and devices: Endotracheal tube tip terminates proximally 5 cm above the franck. Enteric tube tip terminates at the level of the GE junction. Lungs: Central vascular prominence with bilateral hazy opacities concerning for pulmonary edema. Mild bibasilar atelectasis. Pleural spaces: Small left pleural effusion. Heart/Mediastinum: Cardiomegaly. Bones/joints: Unremarkable. XR/XR chest 1V portable [id number] IMPRESSION: Enteric tube tip terminates at the level of the GE junction. Consider advancement clinically indicated. Endotracheal tube tip terminates proximally 5 cm above the franck. Central vascular prominence with bilateral hazy opacities concerning for pulmonary edema. Mild bibasilar atelectasis. Small left pleural effusion.
--- NOTE | 2024-03-21 20:07 | PC.NURSE ---
Patient's called. NUrse gave her an update on patient's condition. states that he drank a large amount of alcohol last night and that may have also affected his medications or caused him to lose track of which medications he took.
[2024-03-21 20:48] LABS: Basophils % 0.1 %; Hematocrit 35.1 % (37-53); Lymphocytes # 0.4 10^3/uL (0.8-4.8); Lymphocytes % 4.5 %; Mean Corpuscular HGB Conc 31.9 g/dL (30-55); Mean Corpuscular Hemoglobin 32.1 pg (27-33); Mean Corpuscular Volume 100.6 fl (82-101); Mean Platelet Volume 11.1 fL (7.4-10.4); Monocytes # 0.1 10^3/uL (0.2-0.9); Monocytes % 1.5 %; Neutrophils # 8.88 10^3/uL (1.8-7.7); Neutrophils % 93.6 %; Nucleated Red Blood Cells % 0 %; Platelet Count 187 10^3/cmm (157-399); Red Blood Count 3.49 10^6/uL (3.85-5.65); Red Cell Distribution Width 14.6 % (12.1-15.1); White Blood Count 9.49 10^3/uL (3.29-11.43)
[2024-03-21 21:29] LABS: Glucose Point of Care 141 mg/dL (70-110)
[2024-03-21] MEDS: insulin lispro 100 unit/1 mL SUBCUT (21:44)
[2024-03-21] MEDS: atorvastatin 40 mg Tablet 80 MG PO (21:46)
[2024-03-21] MEDS: gabapentin 300 mg Capsule 600 MG PO (21:46)
[2024-03-21] MEDS: aspirin 81 mg EC Tablet PO (21:46)
[2024-03-21] MEDS: sennosides 8.6 mg Tablet 17.2 MG PO (21:49)
[2024-03-21] MEDS: fentaNYL 1,000 MCG/100 ML BAG 7.5 MCG IV (23:06)
[2024-03-21] MEDS: sodium chloride 0.9% 1,000 ML 50 ML IV (23:26)
[2024-03-22] VITALS (108 sets, daily range): BP systolic 89–163; BP diastolic 41–124; PULSE 77–109; RESP 10–25; TEMP 36.7–38.1; O2SAT 82–97
[2024-03-22] MEDS: methylPREDNISolone sod succ 40 mg/mL INJ IVP ×2 (02:56→13:57)
[2024-03-22] MEDS: propofol 1,000 MG/100 ML INJ 8.55 MG IV (03:05)
[2024-03-22 04:04] LABS: Basophils % 0.1 %; Hematocrit 35.2 % (37-53); Lymphocytes # 0.4 10^3/uL (0.8-4.8); Lymphocytes % 5.4 %; Mean Corpuscular HGB Conc 32.4 g/dL (30-55); Mean Corpuscular Hemoglobin 32.2 pg (27-33); Mean Corpuscular Volume 99.4 fl (82-101); Monocytes # 0.2 10^3/uL (0.2-0.9); Monocytes % 2.3 %; Neutrophils % 91.8 %; Nucleated Red Blood Cells % 0 %; Platelet Count 190 10^3/cmm (157-399); Red Blood Count 3.54 10^6/uL (3.85-5.65); Red Cell Distribution Width 14.3 % (12.1-15.1); White Blood Count 7.84 10^3/uL (3.29-11.43)
[2024-03-22 04:28] LABS: Alanine Aminotransferase 60 U/L (0-41); Albumin Level 3.8 g/dL (3.5-5.2); Alkaline Phosphatase 130 U/L (40-130); Anion Gap 15.7 (5-19); Aspartate Amino Transferase 47 U/L (0-40); Blood Urea Nitrogen 30 mg/dL (8-23); Calcium 9.4 mg/dL (8.5-10.5); Carbon Dioxide 26 mmol/L (22-29); Chloride 103 mmol/L (98-107); Creatinine Clr Calc Pharmacy 68.3904; Globulin 2.6 g/dL (1.3-4.6); Glucose 151 mg/dL (65-115); Magnesium 2.2 mg/dL (1.7-2.3); Osmolality Calculated 301 mOsm/kg (285-295); Phosphorus 4.3 mg/dL (2.5-4.5); Potassium 3.7 mmol/L (3.5-5.1); Sodium 141 mmol/L (136-145); Total Bilirubin 0.3 mg/dL (0.15-1.2); Total Protein 6.4 g/dL (6.6-8.7); Uric Acid 4.3 mg/dL (3.4-7.0)
[2024-03-22] MEDS: vancomycin 1,250 MG/250 ML PIGGYBACK 166 MG IV ×2 (05:02→17:30)
[2024-03-22 05:03] LABS: ABG PH Result 7.33 (7.35-7.45); Arterial Blood Gas Hematocrit 44.3 % (42-52); Base Excess ABG -0.6 mmol/L (-2.0-2.0); Blood Gas Allen Test Pos; Blood Gas Operator Identificat JB; Blood Gas Sample Site Radial, right; Blood Gas Sample Type Arterial; Oxygen Device VENT; PO2 ABG 96.1 mmHg (80.0-100.0); PO2 FiO2 Ratio Arterial Blood 192
[2024-03-22] MEDS: levothyroxine 125 mcg Tablet 250 MCG PO (05:04)
[2024-03-22] MEDS: dilTIAZem 30 mg Tablet PO ×3 (05:05→17:29)
--- NOTE | 2024-03-22 06:00 | XRR_ITS ---
PROCEDURE INFORMATION: Exam: XR Chest Exam date and time: 03/22/2024 6:52 AM Age: 79 years old Clinical indication: Device placement; Ett placement (vent status); Additional info: Respiratory failure on vent TECHNIQUE: Imaging protocol: Radiologic exam of the chest. Views: 1 view. COMPARISON: CR (CHEST, ) 03/21/2024 7:36 PM FINDINGS: Tubes, catheters and devices: Endotracheal tube is present with its tip 5.6 cm above the franck. Nasogastric tube is present with its tip below the level of the film. Lungs: There are bibasilar opacities slightly worse on the left than on the right. Findings may reflect layering pleural fluid, atelectasis, pneumonia or a combination. Upper lungs are clear. Findings are similar to that seen on prior exam. Pleural spaces: Suspect small pleural effusions. Heart/Mediastinum: Unremarkable. No cardiomegaly. Bones/joints: There are postoperative changes involving the left shoulder. XR/XR chest 1V portable [id number] IMPRESSION: 1. Bibasilar opacities similar to that seen on prior exam.
--- NOTE | 2024-03-22 06:31 | PC.NURSE ---
Lovenox: Dr. Gama called unit @ approximately 0630 for update on patient. New order to resume Lovenox 140 for 0800.
[2024-03-22] MEDS: piperacillin-tazobactam 3.375 GM in sodium chloride 0.9% (plus) 50 ML IV ×3 (06:40→21:59)
[2024-03-22] MEDS: ipratropium-albuterol 3 mL Neb INHALATION ×4 (07:47→20:11)
[2024-03-22] MEDS: budesonide 0.5 mg/2 mL Neb INHALATION ×2 (07:47→20:11)
[2024-03-22 07:57] LABS: Glucose Point of Care 132 mg/dL (70-110)
[2024-03-22] MEDS: gabapentin 300 mg Capsule 600 MG PO ×3 (09:08→20:22)
[2024-03-22] MEDS: docusate sodium 100 mg Capsule PO ×2 (09:08→17:29)
[2024-03-22] MEDS: pantoprazole 40 mg SDV IVP (09:09)
[2024-03-22] MEDS: fentaNYL 1,000 MCG/100 ML BAG 7.5 MCG IV (10:20)
--- NOTE | 2024-03-22 10:46 | P.PN_ITS ---
Subjective 2 Subjective: Seen this morning. Patient is intubated. He is awake alert and writing notes on a notepad. He is passing gas as well. Blood pressure stable on 10 of propofol and 100 of fentanyl. FiO2 45% on the ventilator. Good tidal volumes good minute ventilation. Discussed with him regarding removing ET tube today and he is agreeable and looking forward to it. Following all commands patient following all commands. Discussed the plan with RT and patient's RN. No family at bedside at this time. ABG reviewed from this morning. Vitals/I&O/Wt Last Vital Signs Temp 100.6 F H 03/22/24 07:30 Pulse 96 03/22/24 10:15 Resp 16 03/22/24 10:07 BP 114/73 03/22/24 10:15 Pulse Ox 96 03/22/24 10:15 O2 Del Method Mechanical Ventilation 03/22/24 10:15 FiO2 40 03/22/24 10:07 03/21/24 03/22/24 03/22/24 22:59 06:59 14:59 Intake Total 573.317 / 1575.984 698.578 / 2274.562 100.680 / 100.680 Output Total 125 / 125 1150 / 1275 450 / 450 Balance 448.317 / 1450.984 -451.422 / 999.562 -349.320 / -349.320 Weight last 48 hrs Weight 144.696 kg Weight 142.5 kg Weight 144.696 kg Physical Exam 2 Narrative: General: Alert alert and awake, intubated, writing paper notes. No acute distress. Answers questions and follows commands. HEENT: Normocephalic, atraumatic, EOMI, 5% FiO2 on ventilator, Cardio: Normal S1-S2, no gross murmurs. Respiratory: Good bilateral air entry, no wheezes no rhonchi appreciated GI: Abdomen soft, nontender, nondistended, bowel sounds + Behavior: Appropriate and cooperative Extremities: No edema bilateral lower extremities Urinary Catheter Management: Rg: Cath Placed During This Visit: yes Reason for Continuing Indwelling Catheter: Accurate Measurement of Urinary Output in Critically Ill Patients Urinary Catheter Date of Insertion: 03/21/24 Urinary Catheter Time of Insertion: 11:33 Data 03/22/24 03:39 03/22/24 03:39 Micro: Microbiology 03/21/24 12:40 Gram Stain - Final Sputum - Endotracheal Tube Aspirate 03/21/24 10:45 Blood Culture - Preliminary Blood SPECIMEN COLLECTED 03/21/24 10:50 Blood Culture - Preliminary Blood SPECIMEN COLLECTED A&P Assessment and plan (1) Essential (primary) hypertension: Chronically on carvedilol, torsemide + potassium, valsartan-HCTZ in addition to aforementioned diltiazem. At admission, and after intubation/sedation, soft blood pressures noted. (2) Atrial fibrillation: Chronic atrial fibrillation/flutter, on diltiazem chronically along with xarelto. Also on betablocker. (3) Pulmonary embolism, bilateral: Present on admission in a gentleman with a history of bilateral PEs in the past for which he is on chronic anticoagulation with Xarelto. Unknown at this time if these are acute versus chronic. Could be either or even both with presentation. (4) Diabetes mellitus, type II: Non insulin requiring with diabetic peripheral neuropathy, possible CKD stage 2. Chrnoicallly on jardiance, metformin and ozempic, takes gabapentin for neuoropathy pain. 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 CT imaging with bronchial thickening. Chronically on trelogy ellipita, albuterol. (12) Acquired central alveolar hypoventilation syndrome: (13) Respiratory failure with hypoxia and hypercapnia: (14) Ventilator dependent: (15) High risk medication use: In addition to chronic anticoagulation, on ozempic and has history of ileus, on chronic reglan (16) Acute respiratory failure: Hypercapneic and hypoxic, acute on chronic (though unclear if has both chronic hypercapnea and chronic hypoxemia at admission). After reviewing history I strongly suspect that this is due to a combination of CPAP and/or oxygen not working correctly the first night of this hunting trip combined with mixing up his medications the last 24 hours or so, last night and this morning. That said he does have evidence of pulmonary emboli and very well could have missed a dose of his chronic anticoagulation. I do not have prior studies for comparison currently and was not able to directly speak to his primary care provider in [place] today. He is known to have previously had bilateral PEs but this was sometime ago rather than recently making it challenging to know at this point in time. With recent travel acute PE possibility has to be managed. Pneumonia within differential particularly with bilateral lower lobe consolidations although this could be areas of atelectasis. With bronchial wall thickening acute bronchitis another consideration. PCR for COVID, influenza and RSV were all negative so organism would be unknown. He not showing evidence of severe sepsis at admission nor hemoodynamic instability currently, though with sedation has had some lower blood pressures. (17) Pneumonia: Organism unknown, bilateral lower loves, present on admission, on antibiotics orally prior to admission, history of ESBL Klebsiella. (18) Sleep apnea: Uses CPAP at home with oxygen at night. Some difficulty with set up Thursday night. Not usually onoxygen during day. (19) Bladder dysfunction: On fesoterodine and vibegron, gets botox in bladder Plan #Vent dependent respiratory failure secondary to hypoxemia and hypercapnia #Bilateral pulmonary emboli #Possible bilateral lower lobe pneumonia versus atelectasis #Obstructive sleep apnea #History of COPD #Type 2 diabetes mellitus #Atrial fibrillation #Hypertension #Hypothyroidism #GERD #History of prostate cancer #Bladder dysfunction #History of GI bleed #History of ESBL #CKD stage II 03/22 ? ABG reviewed this morning. Patient is following commands and is alert and awake. Discussed with patient's RN and RT for SBT trial today. Plan to extubate. - BP 110 range at this time, will confirm home medications and restart gradually after extubation - await cultures - continue levothyroxine - continue accucheck q6h - low dose intensity SSI - continue allopurinol - continue aspirin 81 daily, - continue protonix 40 iv daily - patient will need to be discharged on lovenox q12h at this time - he apparently missed one dose of xarelto - PCP to decide on further management for anticoagulation - duoneb q6h scheduled - continue solumedrol 40 q12h - continue vanc and zosyn. 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
[2024-03-22 11:22] LABS: Glucose Point of Care 169 mg/dL (70-110)
--- NOTE | 2024-03-22 11:38 | PC.NURSE ---
Doctor Valeria gave orders to hold allopurinol and carvedilol since the patient's blood pressures have been stable.
[2024-03-22] MEDS: fluticasone nasal spray 16gm Btl 2 SPRAY INTRANASAL (11:44)
[2024-03-22] MEDS: mupirocin oint 22 gm 1 APPLIC TOPICAL (11:45)
--- NOTE | 2024-03-22 13:06 | PC.NURSE ---
Patient was extubated successfully at 1300 by RT Daysi. Patient was transitioned to Bipap. Patient is resting in bed.
--- NOTE | 2024-03-22 13:50 | PC.NURSE ---
Addendum entered by Della Douglass RN 03/22/24 15:18: This nurse was present to witness the following waste. Original Note: This nurse along with SEVERO Hull waisted Fentanyl-83mls Propofol-61mls versed-69 mls
[2024-03-22] MEDS: insulin lispro 100 unit/1 mL SUBCUT ×3 (13:56→21:59)
[2024-03-22] MEDS: metoclopramide 10 mg Tablet 5 MG PO ×3 (13:57→20:23)
[2024-03-22] MEDS: levofloxacin-dextrose 5 % 750 MG/150 ML PREMIX 100 MG IV (16:05)
--- NOTE | 2024-03-22 17:18 | USCV_ITS ---
Jaron Meza Age: 79 Gender: M : 1945 Exam Date: 03/22/2024 20:39 Ordering Phys: Frances Shaw MD Technologist: LORA Exam Location: [facility] [place] Indication: Rule out for DVT bilateral pulmonary emboli, bilateral mild LE edema. HISTORY: Rule out for DVT bilateral pulmonary emboli, bilateral mild LE edema. PROCEDURES: Venous duplex imaging was performed in bilateral lower extremities. The following venous structures were evaluated: common femoral vein, profunda vein, proximal portion of the greater saphenous vein, superficial femoral vein, and the popliteal vein. In addition, the posterior tibial veins were evaluated. Serial compression, augmentation maneuvers, and spectral Doppler flow evaluation were performed, which were normal. Bilaterally, the common femoral, superficial femoral, profunda femoral, popliteal, posterior tibial, greater saphenous veins were identified and interrogated in the standard fashion. These veins were found to be easily compressible with spontaneous blood flow. No evidence of thrombus noted. CONCLUSIONS No evidence of right lower extremity DVT. No evidence of left lower extremity DVT. Jaime Miles MD (Electronically Signed) Final Date: 23 March 2024 17:05 S
[2024-03-22] MEDS: allopurinol 300 mg Tablet PO (17:28)
[2024-03-22] MEDS: carvedilol 3.125 mg Tablet PO ×2 (17:29→20:23)
[2024-03-22] MEDS: enoxaparin 150 mg/mL Syringe 140 MG SUBCUT (17:29)
[2024-03-22 17:45] LABS: Glucose Point of Care 168 mg/dL (70-110)
[2024-03-22] MEDS: sodium chloride 0.9% 1,000 ML 50 ML IV (19:53)
[2024-03-22] MEDS: sennosides 8.6 mg Tablet 17.2 MG PO (20:23)
[2024-03-22] MEDS: atorvastatin 40 mg Tablet 80 MG PO (20:23)
[2024-03-22] MEDS: aspirin 81 mg EC Tablet PO (20:23)
[2024-03-22 20:35] LABS: Glucose Point of Care 187 mg/dL (70-110)
[2024-03-23] VITALS (67 sets, daily range): BP systolic 102–177; BP diastolic 62–122; PULSE 64–105; RESP 13–28; TEMP 36.3–37; O2SAT 88–98
[2024-03-23] MEDS: dilTIAZem 30 mg Tablet PO ×4 (00:26→17:40)
[2024-03-23] MEDS: methylPREDNISolone sod succ 40 mg/mL INJ IVP ×2 (03:11→15:43)
[2024-03-23 05:29] LABS: Hematocrit 36.9 % (37-53); Lymphocytes # 0.4 10^3/uL (0.8-4.8); Lymphocytes % 4.4 %; Mean Corpuscular HGB Conc 30.9 g/dL (30-55); Mean Corpuscular Hemoglobin 31.9 pg (27-33); Mean Corpuscular Volume 103.4 fl (82-101); Mean Platelet Volume 11.1 fL (7.4-10.4); Monocytes # 0.5 10^3/uL (0.2-0.9); Monocytes % 5.8 %; Neutrophils # 7.71 10^3/uL (1.8-7.7); Neutrophils % 89.5 %; Nucleated Red Blood Cells % 0 %; Platelet Count 197 10^3/cmm (157-399); Red Blood Count 3.57 10^6/uL (3.85-5.65); Red Cell Distribution Width 14.5 % (12.1-15.1); White Blood Count 8.62 10^3/uL (3.29-11.43)
[2024-03-23] MEDS: piperacillin-tazobactam 3.375 GM in sodium chloride 0.9% (plus) 50 ML IV ×3 (05:45→22:48)
[2024-03-23] MEDS: enoxaparin 150 mg/mL Syringe 140 MG SUBCUT ×2 (05:46→17:41)
[2024-03-23] MEDS: levothyroxine 125 mcg Tablet 250 MCG PO (05:46)
[2024-03-23] MEDS: vancomycin 1,250 MG/250 ML PIGGYBACK 166.6 MG IV ×2 (05:46→19:46)
[2024-03-23 05:47] LABS: Blood Urea Nitrogen 31 mg/dL (8-23); Calcium 9.3 mg/dL (8.5-10.5); Carbon Dioxide 20 mmol/L (22-29); Chloride 105 mmol/L (98-107); Creatinine Clr Calc Pharmacy 81.5015; Glucose 164 mg/dL (65-115); Magnesium 2.4 mg/dL (1.7-2.3); Osmolality Calculated 294 mOsm/kg (285-295); Sodium 137 mmol/L (136-145); Vancomycin Trough 15.6 ug/mL (10-15)
[2024-03-23 05:54] LABS: Anion Gap 16.1 (5-19); Potassium 4.1 mmol/L (3.5-5.1)
[2024-03-23] MEDS: budesonide 0.5 mg/2 mL Neb INHALATION ×2 (07:33→21:17)
[2024-03-23] MEDS: ipratropium-albuterol 3 mL Neb INHALATION ×4 (07:33→21:17)
[2024-03-23 07:45] LABS: Glucose Point of Care 175 mg/dL (70-110)
[2024-03-23] MEDS: docusate sodium 100 mg Capsule PO ×2 (08:19→17:40)
[2024-03-23] MEDS: pantoprazole 40 mg SDV IVP (08:19)
[2024-03-23] MEDS: insulin lispro 100 unit/1 mL SUBCUT ×3 (08:19→21:28)
[2024-03-23] MEDS: allopurinol 300 mg Tablet PO (08:20)
[2024-03-23] MEDS: carvedilol 3.125 mg Tablet PO ×2 (08:20→21:27)
[2024-03-23] MEDS: gabapentin 300 mg Capsule 600 MG PO ×3 (08:20→21:28)
[2024-03-23] MEDS: fluticasone nasal spray 16gm Btl 2 SPRAY INTRANASAL (08:21)
[2024-03-23 11:34] LABS: Glucose Point of Care 244 mg/dL (70-110)
--- NOTE | 2024-03-23 11:35 | P.PN_ITS ---
Subjective 2 Subjective: Seen this morning. Patient feels better. He states he would like go to [place] as soon as possible and asking when he will be discharged. He states his CPAP machine is working fine and he has no issues with that as far as he knows. Vitals/I&O/Wt Last Vital Signs Temp 98.6 F 03/23/24 11:15 Pulse 91 03/23/24 11:15 Resp 16 03/23/24 11:15 BP 102/72 03/23/24 11:15 Pulse Ox 95 03/23/24 11:15 O2 Del Method Nasal Cannula 03/23/24 11:15 O2 Flow Rate 3 03/23/24 11:15 FiO2 35 03/23/24 07:36 03/22/24 03/23/24 03/23/24 22:59 06:59 14:59 Intake Total 1694.167 / 1862.139 170 / 2032.139 Output Total 1400 / 1850 1000 / 2850 600 / 600 Balance 294.167 / 12.139 -830 / -817.861 -600 / -600 Weight last 48 hrs Weight 146.227 kg Weight 146.232 kg Weight 144.696 kg Weight 142.5 kg Physical Exam 2 Narrative: General: AOx3. HEENT: Normocephalic, atraumatic, EOMI, 3 L nasal cannula Cardio: Normal S1-S2, no gross murmurs. Respiratory: Good bilateral air entry, no wheezes no rhonchi appreciated GI: Abdomen soft, nontender, nondistended, bowel sounds + Behavior: Appropriate and cooperative Extremities: No edema bilateral lower extremities Urinary Catheter Management: Rg: Cath Placed During This Visit: yes, but has since been removed by the nurse Reason for Continuing Indwelling Catheter: Decision to DC Catheter Urinary Catheter Date of Insertion: 03/21/24 Urinary Catheter Time of Insertion: 11:33 Date Urinary Catheter Removed: 03/23/24 Time Urinary Catheter Discontinued: 11:07 Data 03/23/24 05:21 03/23/24 05:21 Micro: Microbiology 03/21/24 12:40 Gram Stain - Final Sputum - Endotracheal Tube Aspirate Sputum Culture - Final 03/21/24 10:45 Blood Culture - Preliminary Blood NEGATIVE TO DATE 03/21/24 10:50 Blood Culture - Preliminary Blood NEGATIVE TO DATE A&P Assessment and plan (1) Essential (primary) hypertension: Chronically on carvedilol, torsemide + potassium, valsartan-HCTZ in addition to aforementioned diltiazem. At admission, and after intubation/sedation, soft blood pressures noted. (2) Atrial fibrillation: Chronic atrial fibrillation/flutter, on diltiazem chronically along with xarelto. Also on betablocker. (3) Pulmonary embolism, bilateral: Present on admission in a gentleman with a history of bilateral PEs in the past for which he is on chronic anticoagulation with Xarelto. Unknown at this time if these are acute versus chronic. Could be either or even both with presentation. (4) Diabetes mellitus, type II: Non insulin requiring with diabetic peripheral neuropathy, possible CKD stage 2. Chrnoicallly on jardiance, metformin and ozempic, takes gabapentin for neuoropathy pain. 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 CT imaging with bronchial thickening. Chronically on trelogy ellipita, albuterol. (12) Acquired central alveolar hypoventilation syndrome: (13) Respiratory failure with hypoxia and hypercapnia: (14) Ventilator dependent: (15) High risk medication use: In addition to chronic anticoagulation, on ozempic and has history of ileus, on chronic reglan (16) Acute respiratory failure: Hypercapneic and hypoxic, acute on chronic (though unclear if has both chronic hypercapnea and chronic hypoxemia at admission). After reviewing history I strongly suspect that this is due to a combination of CPAP and/or oxygen not working correctly the first night of this hunting trip combined with mixing up his medications the last 24 hours or so, last night and this morning. That said he does have evidence of pulmonary emboli and very well could have missed a dose of his chronic anticoagulation. I do not have prior studies for comparison currently and was not able to directly speak to his primary care provider in [place] today. He is known to have previously had bilateral PEs but this was sometime ago rather than recently making it challenging to know at this point in time. With recent travel acute PE possibility has to be managed. Pneumonia within differential particularly with bilateral lower lobe consolidations although this could be areas of atelectasis. With bronchial wall thickening acute bronchitis another consideration. PCR for COVID, influenza and RSV were all negative so organism would be unknown. He not showing evidence of severe sepsis at admission nor hemoodynamic instability currently, though with sedation has had some lower blood pressures. (17) Pneumonia: Organism unknown, bilateral lower loves, present on admission, on antibiotics orally prior to admission, history of ESBL Klebsiella. (18) Sleep apnea: Uses CPAP at home with oxygen at night. Some difficulty with set up Thursday night. Not usually onoxygen during day. (19) Bladder dysfunction: On fesoterodine and vibegron, gets botox in bladder Plan #Vent dependent respiratory failure secondary to hypoxemia and hypercapnia #Bilateral pulmonary emboli #Possible bilateral lower lobe pneumonia versus atelectasis #Obstructive sleep apnea #History of COPD #Type 2 diabetes mellitus #Atrial fibrillation #Hypertension #Hypothyroidism #GERD #History of prostate cancer #Bladder dysfunction #History of GI bleed #History of ESBL #CKD stage II 03/23 ? Patient extubated to BiPAP on 03/22. Currently on 3L nasal cannula. - await cultures - continue levothyroxine - continue accucheck q6h - low dose intensity SSI - continue allopurinol - continue aspirin 81 daily, - continue protonix 40 iv daily - patient will need to be discharged on lovenox q12h at this time - he apparently missed one dose of xarelto - PCP to decide on further management for anticoagulation - duoneb q6h scheduled - continue solumedrol 40 q12h - continue vanc and zosyn. will dc levaquin - continue to monitor hemoglobin as pt received a double dose of lovenox, he carries hx of lower GI bleed - records here from PCP, will review ? Will transfer to floor today. ? Home oxygen evaluation today, physical therapy today. If stays stable may consider discharging in morning. Attestations 2 Medical Necessity Statement*: Transfer to floor. Potential discharge in next 24 to 48 hours. 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
--- NOTE | 2024-03-23 12:42 | PC.SOCIAL ---
IMM Updated Updated pt on IMM. No questions voiced. Provided pt a copy. Initialed, dated, & timed a copy & placed in chart.
[2024-03-23] MEDS: metoclopramide 10 mg Tablet 5 MG PO ×3 (12:43→21:27)
--- NOTE | 2024-03-23 13:24 | PC.NURSE ---
Patient was concerned about his right foot hurting and feels like it is swollen. Venous Duplex was ordered by Dr. Shaw.Venous Duplex done on the patient's bilateral lower extremities to rule out DVT. There was no blood clot. Patient's stated that the patient had hit his foot on some furniture. Patient was asked if they had done this and they stated that they do not remember doing that and that it might of been collateral damage from their stay here.
--- NOTE | 2024-03-23 13:32 | PC.NURSE ---
Patient stated that they felt weak and tired. They stated that they felt that this nurse was rushing their progress to get better. This nurse let the patient know that they will let the patient rest and that there was no intention of rushing the patient to get better.
--- NOTE | 2024-03-23 15:28 | PC.NURSE ---
Report was given to Kwaku in [facility]. Patient was transported to [facility] without any complications. All belongings were transferred with patient.
--- NOTE | 2024-03-23 15:28 | PC.NURSE ---
Patient transferred to [facility] from ICU at 1435.
[2024-03-23 16:39] LABS: Glucose Point of Care 140 mg/dL (70-110)
[2024-03-23] MEDS: mupirocin oint 22 gm 1 APPLIC TOPICAL (17:49)
[2024-03-23] MEDS: levofloxacin-dextrose 5 % 750 MG/150 ML PREMIX 100 MG IV (19:46)
[2024-03-23 20:26] LABS: Glucose Point of Care 276 mg/dL (70-110)
[2024-03-23] MEDS: atorvastatin 40 mg Tablet 80 MG PO (21:27)
[2024-03-23] MEDS: sennosides 8.6 mg Tablet 17.2 MG PO (21:27)
[2024-03-23] MEDS: aspirin 81 mg EC Tablet PO (21:27)
[2024-03-24] VITALS (18 sets, daily range): BP systolic 129–155; BP diastolic 86–101; PULSE 79–103; RESP 18–24; TEMP 36.5–37.1; O2SAT 95–98; BMI 42.5
[2024-03-24] MEDS: methylPREDNISolone sod succ 40 mg/mL INJ IVP ×2 (00:34→13:59)
[2024-03-24] MEDS: dilTIAZem 30 mg Tablet PO ×5 (00:34→23:32)
[2024-03-24 04:25] LABS: Hematocrit 36.8 % (37-53); Lymphocytes # 0.3 10^3/uL (0.8-4.8); Mean Corpuscular HGB Conc 31.3 g/dL (30-55); Mean Corpuscular Hemoglobin 32.2 pg (27-33); Mean Corpuscular Volume 103.1 fl (82-101); Mean Platelet Volume 11.3 fL (7.4-10.4); Monocytes # 0.4 10^3/uL (0.2-0.9); Monocytes % 4.9 %; Neutrophils # 8.28 10^3/uL (1.8-7.7); Neutrophils % 91.3 %; Nucleated Red Blood Cells % 0 %; Platelet Count 206 10^3/cmm (157-399); Red Blood Count 3.57 10^6/uL (3.85-5.65); Red Cell Distribution Width 14.6 % (12.1-15.1); White Blood Count 9.06 10^3/uL (3.29-11.43)
[2024-03-24 04:50] LABS: Anion Gap 14.2 (5-19); Blood Urea Nitrogen 38 mg/dL (8-23); Calcium 9.7 mg/dL (8.5-10.5); Carbon Dioxide 23 mmol/L (22-29); Chloride 108 mmol/L (98-107); Creatinine Clr Calc Pharmacy 81.9732; Glucose 197 mg/dL (65-115); Magnesium 2.3 mg/dL (1.7-2.3); Osmolality Calculated 307 mOsm/kg (285-295); Potassium 4.2 mmol/L (3.5-5.1); Sodium 141 mmol/L (136-145)
[2024-03-24] MEDS: vancomycin 1,250 MG/250 ML PIGGYBACK 166.6 MG IV (05:56)
[2024-03-24] MEDS: piperacillin-tazobactam 3.375 GM in sodium chloride 0.9% (plus) 50 ML IV ×3 (05:57→23:32)
[2024-03-24] MEDS: enoxaparin 150 mg/mL Syringe 140 MG SUBCUT ×2 (05:57→17:35)
[2024-03-24] MEDS: levothyroxine 125 mcg Tablet 250 MCG PO (05:58)
[2024-03-24 06:35] LABS: Glucose Point of Care 180 mg/dL (70-110)
[2024-03-24] MEDS: budesonide 0.5 mg/2 mL Neb INHALATION ×2 (08:20→21:02)
[2024-03-24] MEDS: ipratropium-albuterol 3 mL Neb INHALATION ×4 (08:20→21:02)
[2024-03-24] MEDS: gabapentin 300 mg Capsule 600 MG PO ×3 (08:22→20:45)
[2024-03-24] MEDS: carvedilol 3.125 mg Tablet PO ×2 (08:22→20:45)
[2024-03-24] MEDS: insulin lispro 100 unit/1 mL SUBCUT ×4 (08:22→20:46)
[2024-03-24] MEDS: mupirocin oint 22 gm 1 APPLIC TOPICAL ×2 (08:23→19:09)
[2024-03-24] MEDS: docusate sodium 100 mg Capsule PO ×2 (08:23→17:35)
[2024-03-24] MEDS: fluticasone nasal spray 16gm Btl 2 SPRAY INTRANASAL (08:23)
[2024-03-24] MEDS: pantoprazole DR 40 mg Tablet PO (08:23)
[2024-03-24] MEDS: allopurinol 300 mg Tablet PO (08:23)
--- NOTE | 2024-03-24 09:11 | PC.NURSE ---
Nurse walks into room this morning. Patient is sleeping soundly. Nurse disconnects patients IV vancomycin that was finished, flushed the IV line, but noticed that patient had blood on his left arm next to his IV site. The IV is still good and area is cleaned with a saline flush and a opitfoam is placed.
[2024-03-24 11:45] LABS: Glucose Point of Care 224 mg/dL (70-110)
[2024-03-24] MEDS: metoclopramide 10 mg Tablet 5 MG PO ×3 (12:21→20:46)
--- NOTE | 2024-03-24 14:09 | P.PN_ITS ---
Subjective 2 Subjective: seen this morning No acute events overnight. Patient is on 2.5 L nasal cannula saturating 94% at this time. He states he feels better pulmonary antony however is significantly weak and cannot ambulate at all. Vitals/I&O/Wt Last Vital Signs Temp 97.9 F 03/24/24 11:30 Pulse 81 03/24/24 11:46 Resp 20 H 03/24/24 11:46 BP 135/86 03/24/24 11:30 Pulse Ox 95 03/24/24 11:46 O2 Del Method Nasal Cannula 03/24/24 11:46 O2 Flow Rate 2.5 03/24/24 11:46 FiO2 35 03/24/24 07:55 03/23/24 03/24/24 03/24/24 22:59 06:59 14:59 Intake Total 1060 / 1110 50 / 1160 1900 / 1900 Output Total 500 / 1100 300 / 300 Balance 560 / 10 50 / 60 1600 / 1600 Weight last 48 hrs Weight 146.227 kg Weight 146.227 kg Weight 146.232 kg Physical Exam 2 Narrative: General: AOx3. HEENT: Normocephalic, atraumatic, EOMI, 3 L nasal cannula Cardio: Normal S1-S2, no gross murmurs. Respiratory: Good bilateral air entry, no wheezes no rhonchi appreciated GI: Abdomen soft, nontender, nondistended, bowel sounds + Behavior: Appropriate and cooperative Extremities: No edema bilateral lower extremities Urinary Catheter Management: Rg: Cath Placed During This Visit: yes, but has since been removed by the nurse Reason for Continuing Indwelling Catheter: Decision to DC Catheter Urinary Catheter Date of Insertion: 03/21/24 Urinary Catheter Time of Insertion: 11:33 Date Urinary Catheter Removed: 03/23/24 Time Urinary Catheter Discontinued: 11:07 Data 03/25/24 08:24 03/24/24 04:11 Micro: Microbiology 03/21/24 12:40 Gram Stain - Final Sputum - Endotracheal Tube Aspirate Sputum Culture - Final A&P Assessment and plan (1) Essential (primary) hypertension: Chronically on carvedilol, torsemide + potassium, valsartan-HCTZ in addition to aforementioned diltiazem. At admission, and after intubation/sedation, soft blood pressures noted. (2) Atrial fibrillation: Chronic atrial fibrillation/flutter, on diltiazem chronically along with xarelto. Also on betablocker. (3) Pulmonary embolism, bilateral: Present on admission in a gentleman with a history of bilateral PEs in the past for which he is on chronic anticoagulation with Xarelto. Unknown at this time if these are acute versus chronic. Could be either or even both with presentation. (4) Diabetes mellitus, type II: Non insulin requiring with diabetic peripheral neuropathy, possible CKD stage 2. Chrnoicallly on jardiance, metformin and ozempic, takes gabapentin for neuoropathy pain. 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 CT imaging with bronchial thickening. Chronically on trelogy ellipita, albuterol. (12) Acquired central alveolar hypoventilation syndrome: (13) Respiratory failure with hypoxia and hypercapnia: (14) Ventilator dependent: (15) High risk medication use: In addition to chronic anticoagulation, on ozempic and has history of ileus, on chronic reglan (16) Acute respiratory failure: Hypercapneic and hypoxic, acute on chronic (though unclear if has both chronic hypercapnea and chronic hypoxemia at admission). After reviewing history I strongly suspect that this is due to a combination of CPAP and/or oxygen not working correctly the first night of this hunting trip combined with mixing up his medications the last 24 hours or so, last night and this morning. That said he does have evidence of pulmonary emboli and very well could have missed a dose of his chronic anticoagulation. I do not have prior studies for comparison currently and was not able to directly speak to his primary care provider in [place] today. He is known to have previously had bilateral PEs but this was sometime ago rather than recently making it challenging to know at this point in time. With recent travel acute PE possibility has to be managed. Pneumonia within differential particularly with bilateral lower lobe consolidations although this could be areas of atelectasis. With bronchial wall thickening acute bronchitis another consideration. PCR for COVID, influenza and RSV were all negative so organism would be unknown. He not showing evidence of severe sepsis at admission nor hemoodynamic instability currently, though with sedation has had some lower blood pressures. (17) Pneumonia: Organism unknown, bilateral lower loves, present on admission, on antibiotics orally prior to admission, history of ESBL Klebsiella. (18) Sleep apnea: Uses CPAP at home with oxygen at night. Some difficulty with set up Thursday night. Not usually onoxygen during day. (19) Bladder dysfunction: On fesoterodine and vibegron, gets botox in bladder Plan #Vent dependent respiratory failure secondary to hypoxemia and hypercapnia #Bilateral pulmonary emboli #Possible bilateral lower lobe pneumonia versus atelectasis #Obstructive sleep apnea #History of COPD #Type 2 diabetes mellitus #Atrial fibrillation #Hypertension #Hypothyroidism #GERD #History of prostate cancer #Bladder dysfunction #History of GI bleed #History of ESBL #CKD stage II 03/24 ? Patient extubated to BiPAP on 03/22. Currently on 3L nasal cannula. - await cultures - continue levothyroxine - continue accucheck q6h - low dose intensity SSI - continue allopurinol - continue aspirin 81 daily, - continue protonix 40 iv daily - patient will need to be discharged on lovenox q12h at this time - he apparently missed one dose of xarelto - PCP to decide on further management for anticoagulation - duoneb q6h scheduled - continue solumedrol 40 q12h - continue vanc and zosyn. Continue Levaquin at this time for dose luminal coverage. - continue to monitor hemoglobin as pt received a double dose of lovenox, he carries hx of lower GI bleed Records from PCP reviewed. Care and physical paper chart at this time. ? Home oxygen evaluation completed. Patient qualifies for 3 L. Patient to work with physical therapy today. If stays stable may consider discharging in morning. 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 Attestations 2 Medical Necessity Statement*: Patient to discharge in next 1 to 4 to 48 hours. 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
[2024-03-24 16:31] LABS: Glucose Point of Care 186 mg/dL (70-110)
[2024-03-24] MEDS: vancomycin 1,250 MG/250 ML PIGGYBACK 250 MG IV (17:36)
[2024-03-24 20:41] LABS: Glucose Point of Care 259 mg/dL (70-110)
[2024-03-24] MEDS: levofloxacin-dextrose 5 % 750 MG/150 ML PREMIX 100 MG IV (20:44)
[2024-03-24] MEDS: aspirin 81 mg EC Tablet PO (20:45)
[2024-03-24] MEDS: atorvastatin 40 mg Tablet 80 MG PO (20:45)
[2024-03-24] MEDS: sennosides 8.6 mg Tablet 17.2 MG PO (20:46)
[2024-03-25] VITALS (14 sets, daily range): BP systolic 131–147; BP diastolic 87–102; PULSE 77–106; RESP 14–22; TEMP 35.7–37; O2SAT 92–99; BMI 42.5
[2024-03-25] MEDS: methylPREDNISolone sod succ 40 mg/mL INJ IVP ×2 (02:15→09:23)
[2024-03-25 06:24] LABS: Glucose Point of Care 163 mg/dL (70-110)
[2024-03-25] MEDS: piperacillin-tazobactam 3.375 GM in sodium chloride 0.9% (plus) 50 ML IV (06:28)
[2024-03-25] MEDS: levothyroxine 125 mcg Tablet 250 MCG PO (06:29)
[2024-03-25] MEDS: dilTIAZem 30 mg Tablet PO ×3 (06:29→17:58)
[2024-03-25] MEDS: enoxaparin 150 mg/mL Syringe 140 MG SUBCUT ×2 (06:29→17:57)
[2024-03-25] MEDS: vancomycin 1,250 MG/250 ML PIGGYBACK 250 MG IV (06:29)
[2024-03-25] MEDS: budesonide 0.5 mg/2 mL Neb INHALATION ×2 (08:07→20:42)
[2024-03-25] MEDS: ipratropium-albuterol 3 mL Neb INHALATION (08:07)
[2024-03-25] MEDS: insulin lispro 100 unit/1 mL SUBCUT ×4 (08:11→21:10)
[2024-03-25] MEDS: mupirocin oint 22 gm 1 APPLIC TOPICAL ×2 (08:12→18:05)
[2024-03-25] MEDS: allopurinol 300 mg Tablet PO (08:12)
[2024-03-25] MEDS: carvedilol 3.125 mg Tablet PO ×2 (08:12→20:17)
[2024-03-25] MEDS: fluticasone nasal spray 16gm Btl 2 SPRAY INTRANASAL (08:12)
[2024-03-25] MEDS: gabapentin 300 mg Capsule 600 MG PO ×3 (08:12→20:16)
[2024-03-25] MEDS: pantoprazole DR 40 mg Tablet PO (08:12)
[2024-03-25] MEDS: docusate sodium 100 mg Capsule PO ×2 (08:12→17:58)
[2024-03-25 08:52] LABS: Basophils % 0.1 %; Hematocrit 34.9 % (37-53); Lymphocytes # 0.3 10^3/uL (0.8-4.8); Lymphocytes % 3.2 %; Mean Corpuscular HGB Conc 32.1 g/dL (30-55); Mean Corpuscular Hemoglobin 32.6 pg (27-33); Mean Corpuscular Volume 101.5 fl (82-101); Mean Platelet Volume 11.3 fL (7.4-10.4); Monocytes # 0.4 10^3/uL (0.2-0.9); Monocytes % 4.9 %; Neutrophils % 91.3 %; Nucleated Red Blood Cells % 0 %; Platelet Count 202 10^3/cmm (157-399); Red Blood Count 3.44 10^6/uL (3.85-5.65); Red Cell Distribution Width 14.7 % (12.1-15.1); White Blood Count 8.11 10^3/uL (3.29-11.43)
[2024-03-25] MEDS: azithromycin 250 mg Tablet 500 MG PO (09:23)
[2024-03-25] MEDS: cefTRIAXone 1,000 mg SDV 1000 MG IVP (09:24)
--- NOTE | 2024-03-25 11:12 | PM.PN ---
Subjective Subjective: Seen this morning. Patient states he feels better. He says he was also able to work with physical therapy yesterday. I informed him that air ambulance has been approved through his insurance. I spoke to medical genetics director personally. Patient will be going home to [place] via air ambulance. He is requiring 3 L of oxygen at this time based on home oxygen evaluation. Sitting up in recliner appearing comfortable at this time. No edema bilateral lower extremities. Lungs clear to auscultation. Yesterday had a tiny tinge of hemoptysis most likely secondary to his pulmonary embolism. Hemoglobin is stable at this time. Patient would like to know regarding July because he has a rental car that he has to return. His scooter and large bag is in there as well. I have informed him that once we have his return we will let him know and update him. Also received a call from patient's primary care doctor and discussed with him regarding patient's care here. Updated him on the case as well. Informed him that patient will probably need home health versus home physical therapy after arriving to [place]. Updated patient as well. Once discharge summary is ready we will fax it to [phone] Dr. Cullen's office. Vitals/I&O/Wt Last Vital Signs Temp 98.6 F 03/25/24 08:00 Pulse 83 03/25/24 08:17 Resp 18 03/25/24 08:17 BP 147/102 03/25/24 08:00 Pulse Ox 95 03/25/24 08:17 O2 Del Method Nasal Cannula 03/25/24 08:17 O2 Flow Rate 2 03/25/24 08:17 FiO2 35 03/25/24 04:15 03/24/24 03/25/24 03/25/24 22:59 06:59 14:59 Intake Total 690 / 2590 250 / 2840 831.25 / 831.25 Output Total 900 / 1450 400 / 1850 Balance -210 / 1140 -150 / 990 831.25 / 831.25 Weight last 48 hrs Weight 146.227 kg Weight 146.227 kg Physical Exam Narrative: General: AOx3. HEENT: Normocephalic, atraumatic, EOMI, 3 L nasal cannula Cardio: Normal S1-S2, no gross murmurs. Respiratory: Good bilateral air entry, no wheezes no rhonchi appreciated GI: Abdomen soft, nontender, nondistended, bowel sounds + Behavior: Appropriate and cooperative Extremities: No edema bilateral lower extremities Urinary Catheter Management: Rg: Cath Placed During This Visit: yes, but has since been removed by the nurse Reason for Continuing Indwelling Catheter: Decision to DC Catheter Urinary Catheter Date of Insertion: 03/21/24 Urinary Catheter Time of Insertion: 11:33 Date Urinary Catheter Removed: 03/23/24 Time Urinary Catheter Discontinued: 11:07 Data 03/25/24 08:24 03/24/24 04:11 A&P Assessment and plan (1) Essential (primary) hypertension: Chronically on carvedilol, torsemide + potassium, valsartan-HCTZ in addition to aforementioned diltiazem. At admission, and after intubation/sedation, soft blood pressures noted. (2) Atrial fibrillation: Chronic atrial fibrillation/flutter, on diltiazem chronically along with xarelto. Also on betablocker. (3) Pulmonary embolism, bilateral: Present on admission in a gentleman with a history of bilateral PEs in the past for which he is on chronic anticoagulation with Xarelto. Unknown at this time if these are acute versus chronic. Could be either or even both with presentation. (4) Diabetes mellitus, type II: Non insulin requiring with diabetic peripheral neuropathy, possible CKD stage 2. Chrnoicallly on jardiance, metformin and ozempic, takes gabapentin for neuoropathy pain. 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 CT imaging with bronchial thickening. Chronically on trelogy ellipita, albuterol. (12) Acquired central alveolar hypoventilation syndrome: (13) Respiratory failure with hypoxia and hypercapnia: (14) Ventilator dependent: (15) High risk medication use: In addition to chronic anticoagulation, on ozempic and has history of ileus, on chronic reglan (16) Acute respiratory failure: Hypercapneic and hypoxic, acute on chronic (though unclear if has both chronic hypercapnea and chronic hypoxemia at admission). After reviewing history I strongly suspect that this is due to a combination of CPAP and/or oxygen not working correctly the first night of this hunting trip combined with mixing up his medications the last 24 hours or so, last night and this morning. That said he does have evidence of pulmonary emboli and very well could have missed a dose of his chronic anticoagulation. I do not have prior studies for comparison currently and was not able to directly speak to his primary care provider in [place] today. He is known to have previously had bilateral PEs but this was sometime ago rather than recently making it challenging to know at this point in time. With recent travel acute PE possibility has to be managed. Pneumonia within differential particularly with bilateral lower lobe consolidations although this could be areas of atelectasis. With bronchial wall thickening acute bronchitis another consideration. PCR for COVID, influenza and RSV were all negative so organism would be unknown. He not showing evidence of severe sepsis at admission nor hemoodynamic instability currently, though with sedation has had some lower blood pressures. (17) Pneumonia: Organism unknown, bilateral lower loves, present on admission, on antibiotics orally prior to admission, history of ESBL Klebsiella. (18) Sleep apnea: Uses CPAP at home with oxygen at night. Some difficulty with set up Thursday night. Not usually onoxygen during day. (19) Bladder dysfunction: On fesoterodine and vibegron, gets botox in bladder Plan #Vent dependent respiratory failure secondary to hypoxemia and hypercapnia?resolved #Bilateral pulmonary emboli #Possible bilateral lower lobe pneumonia versus atelectasis #Obstructive sleep apnea #History of COPD #Type 2 diabetes mellitus #Atrial fibrillation #Hypertension #Hypothyroidism #GERD #History of prostate cancer #Bladder dysfunction #History of GI bleed #History of ESBL #CKD stage II 03/25 ? Patient extubated to BiPAP on 03/22. Currently on 3L nasal cannula. - await cultures?so far negative to date. - continue levothyroxine - continue accucheck q6h - low dose intensity SSI - continue allopurinol - continue aspirin 81 daily, -Switch to Protonix oral. - patient will need to be discharged on lovenox q12h at this time - he apparently missed one dose of xarelto - PCP to decide on further management for anticoagulation?PCP updated over the phone regarding patient's hospital stay. - duoneb q6h scheduled -Switch to Solu-Medrol 40 daily. Will taper off at this point. -Stop vancomycin and Zosyn. Will de-escalate to ceftriaxone azithromycin. Will continue Levaquin for dual pseudomonal coverage. Patient has been on antibiotics and today is day 5. Will treat total of 10 days -Did have a small episode of hemoptysis yesterday which resolved on its own. Hemoglobin is stable at this time. ? Home oxygen evaluation completed. Patient qualifies for 3 L. Physical therapy has evaluated the patient. Patient will need home exercise program. Patient will be going back to [place] via air ambulance secondary to his requirement of continuous oxygen. PCP updated. He will need meds to beds. Blood cultures, sputum culture are all negative to date at this time. Blood pressure elevated. Will restart hydrochlorothiazide valsartan combination home dose. Attestations Medical Necessity Statement*: Plan for discharge in next 24 hours after air ambulance transportation is set up. 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
[2024-03-25] MEDS: metoclopramide 10 mg Tablet 5 MG PO ×3 (11:59→20:16)
--- NOTE | 2024-03-25 12:27 | PC.SOCIAL ---
IMM updated. Updated pt on IMM. No questions voiced. Provided pt a copy. Initialed, dated, & timed copy in chart.
[2024-03-25 12:49] LABS: Glucose Point of Care 183 mg/dL (70-110)
[2024-03-25 17:20] LABS: Glucose Point of Care 222 mg/dL (70-110)
[2024-03-25] MEDS: acetaminophen 325 mg Tablet 650 MG PO (17:58)
[2024-03-25] MEDS: levofloxacin-dextrose 5 % 750 MG/150 ML PREMIX 100 MG IV (20:15)
[2024-03-25] MEDS: sennosides 8.6 mg Tablet 17.2 MG PO (20:16)
[2024-03-25] MEDS: aspirin 81 mg EC Tablet PO (20:16)
[2024-03-25] MEDS: atorvastatin 40 mg Tablet 80 MG PO (20:17)
[2024-03-25 20:31] LABS: Glucose Point of Care 229 mg/dL (70-110)
[2024-03-26] VITALS (16 sets, daily range): BP systolic 133–165; BP diastolic 74–102; PULSE 60–101; RESP 16–25; TEMP 35.6–36.9; O2SAT 93–100; BMI 43.3
[2024-03-26] MEDS: dilTIAZem 30 mg Tablet PO ×4 (02:20→17:39)
[2024-03-26 03:56] LABS: Basophils % 0.1 %; Hematocrit 33.5 % (37-53); Lymphocytes # 0.4 10^3/uL (0.8-4.8); Lymphocytes % 5.1 %; Mean Corpuscular HGB Conc 31.9 g/dL (30-55); Mean Corpuscular Hemoglobin 31.5 pg (27-33); Mean Corpuscular Volume 98.5 fl (82-101); Mean Platelet Volume 11.4 fL (7.4-10.4); Monocytes # 1.1 10^3/uL (0.2-0.9); Monocytes % 13.1 %; Neutrophils # 6.74 10^3/uL (1.8-7.7); Neutrophils % 81.2 %; Nucleated Red Blood Cells % 0 %; Platelet Count 188 10^3/cmm (157-399); Red Cell Distribution Width 14.7 % (12.1-15.1)
[2024-03-26 04:12] LABS: Anion Gap 9.2 (5-19); Blood Urea Nitrogen 40 mg/dL (8-23); Calcium 9.9 mg/dL (8.5-10.5); Carbon Dioxide 26 mmol/L (22-29); Chloride 110 mmol/L (98-107); Creatinine Clr Calc Pharmacy 112.7132; Glucose 150 mg/dL (65-115); Osmolality Calculated 305 mOsm/kg (285-295); Potassium 4.2 mmol/L (3.5-5.1); Sodium 141 mmol/L (136-145)
[2024-03-26] MEDS: levothyroxine 125 mcg Tablet 250 MCG PO (05:52)
[2024-03-26] MEDS: hydroCHLOROthiazide 25 mg Tablet 12.5 MG PO (05:52)
[2024-03-26] MEDS: enoxaparin 150 mg/mL Syringe 140 MG SUBCUT ×2 (05:53→17:39)
[2024-03-26] MEDS: losartan 50 mg Tablet 25 MG PO (05:53)
[2024-03-26 06:19] LABS: Glucose Point of Care 125 mg/dL (70-110)
[2024-03-26] MEDS: ipratropium-albuterol 3 mL Neb INHALATION (07:54)
[2024-03-26] MEDS: budesonide 0.5 mg/2 mL Neb INHALATION ×2 (07:54→22:24)
[2024-03-26] MEDS: cefTRIAXone 1,000 mg SDV 1000 MG IVP (09:27)
[2024-03-26] MEDS: pantoprazole DR 40 mg Tablet PO (09:28)
[2024-03-26] MEDS: docusate sodium 100 mg Capsule PO ×2 (09:28→17:39)
[2024-03-26] MEDS: azithromycin 250 mg Tablet 500 MG PO (09:28)
[2024-03-26] MEDS: gabapentin 300 mg Capsule 600 MG PO ×3 (09:28→21:29)
[2024-03-26] MEDS: methylPREDNISolone sod succ 40 mg/mL INJ IVP (09:28)
[2024-03-26] MEDS: allopurinol 300 mg Tablet PO (09:29)
[2024-03-26] MEDS: carvedilol 3.125 mg Tablet PO ×2 (09:35→21:29)
--- NOTE | 2024-03-26 11:00 | XRR_ITS ---
PROCEDURE INFORMATION: Exam: XR Chest Exam date and time: 03/26/2024 11:25 AM Age: 79 years old Clinical indication: Abnormal findings; Abnormal radiologic exam of lung or chest; Prior surgery; Surgery date: 6+ months; Surgery type: Cardiac ablation; Esophageal repair/ring; Fatty tumor removal on back; Additional info: Pneumonia; Bilateral infiltrates; Follow up pulmonary emboli; Afib; Copd TECHNIQUE: Imaging protocol: Radiologic exam of the chest. Views: 1 view. COMPARISON: CR XR chest 1V portable [id number] 03/22/2024 6:52 AM FINDINGS: Lungs: Mild left basilar subsegmental atelectasis. Lungs are otherwise clear. Pleural spaces: Unremarkable. No pleural effusion. No pneumothorax. Heart/Mediastinum: Unchanged cardiomegaly and mediastinal contours. Diaphragm: Right hemidiaphragm is elevated. Bones/joints: Unremarkable. XR/XR chest 1V portable [id number] IMPRESSION: Mild left basilar subsegmental atelectasis. Lungs are otherwise clear.
--- NOTE | 2024-03-26 12:15 | P.PN_ITS ---
Subjective 2 Subjective: seen this morning no acute events overnight Son at bedside. They had questions about the air ambulance timing and itinerary however I do not have the information for them at this time. Son spoke to insurance company while I was present in the room and they said it could take anywhere from 2 hours up to 3 to 4 days. They are waiting for another company for approval and they are typically closed on the weekend. Most likely he would not move out of the hospital before Thursday. In the meantime however patient is saturating 95% on 2 L nasal cannula. Will try to titrate oxygen down to room air to see response. So far oxygenation is around 9192%. Will continue to monitor off of room air and will redo a chest x- ray today. Patient states on exertion and upon laying down he desaturates. Patient has not received torsemide in the hospital. Will order Lasix 20 IV x 1 today. Home medications have been reconciled again today. New prescription have been sent to oral meds to [facility] that he has medications available should he be traveling on the weekend. However Lovenox is not available at any of the [facility] pharmacies. We will need to check other local pharmacies. I was told by pharmacist that that is a special order medication. We will be trying other pharmacies. Patient feels better. He states he is incontinent of urine since he has not taken his urinary incontinence medications. They are nonformulary and he has them in a pillbox in the room which cannot be used at this time. Once his home medications are brought in we will have them tagged at our pharmacy for administration. Vitals/I&O/Wt Last Vital Signs Temp 96.0 F L 03/26/24 08:00 Pulse 70 03/26/24 08:00 Resp 22 H 03/26/24 08:00 BP 149/93 03/26/24 08:00 Pulse Ox 98 03/26/24 08:00 O2 Del Method BiPAP 03/26/24 08:00 O2 Flow Rate 2 03/26/24 07:56 FiO2 35 03/26/24 04:00 03/25/24 03/26/24 03/26/24 22:59 06:59 14:59 Intake Total 630 / 1641.25 Output Total 400 / 625 600 / 1225 525 / 525 Balance -400 / 386.25 30 / 416.25 -525 / -525 Weight last 48 hrs Weight 149 kg Weight 146.227 kg Physical Exam 2 Narrative: General: AOx3. HEENT: Normocephalic, atraumatic, EOMI, 2 L nasal cannula Cardio: Normal S1-S2, no gross murmurs. Respiratory: Good bilateral air entry, no wheezes no rhonchi appreciated GI: Abdomen soft, nontender, nondistended, bowel sounds + Behavior: Appropriate and cooperative Extremities: No edema bilateral lower extremities Urinary Catheter Management: Rg: Cath Placed During This Visit: yes, but has since been removed by the nurse Reason for Continuing Indwelling Catheter: Decision to DC Catheter Urinary Catheter Date of Insertion: 03/21/24 Urinary Catheter Time of Insertion: 11:33 Date Urinary Catheter Removed: 03/23/24 Time Urinary Catheter Discontinued: 11:07 Data 03/26/24 03:28 03/26/24 03:28 Micro: Microbiology 03/24/24 14:20 Sputum Culture - Final Sputum - Expectorated Sputum 03/21/24 10:50 Blood Culture - Final Blood NO GROWTH AFTER 5 DAYS 03/21/24 10:45 Blood Culture - Final Blood NO GROWTH AFTER 5 DAYS A&P Assessment and plan (1) Essential (primary) hypertension: Chronically on carvedilol, torsemide + potassium, valsartan-HCTZ in addition to aforementioned diltiazem. At admission, and after intubation/sedation, soft blood pressures noted. (2) Atrial fibrillation: Chronic atrial fibrillation/flutter, on diltiazem chronically along with xarelto. Also on betablocker. (3) Pulmonary embolism, bilateral: Present on admission in a gentleman with a history of bilateral PEs in the past for which he is on chronic anticoagulation with Xarelto. Unknown at this time if these are acute versus chronic. Could be either or even both with presentation. (4) Diabetes mellitus, type II: Non insulin requiring with diabetic peripheral neuropathy, possible CKD stage 2. Chrnoicallly on jardiance, metformin and ozempic, takes gabapentin for neuoropathy pain. 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 CT imaging with bronchial thickening. Chronically on trelogy ellipita, albuterol. (12) Acquired central alveolar hypoventilation syndrome: (13) Respiratory failure with hypoxia and hypercapnia: (14) Ventilator dependent: (15) High risk medication use: In addition to chronic anticoagulation, on ozempic and has history of ileus, on chronic reglan (16) Acute respiratory failure: Hypercapneic and hypoxic, acute on chronic (though unclear if has both chronic hypercapnea and chronic hypoxemia at admission). After reviewing history I strongly suspect that this is due to a combination of CPAP and/or oxygen not working correctly the first night of this hunting trip combined with mixing up his medications the last 24 hours or so, last night and this morning. That said he does have evidence of pulmonary emboli and very well could have missed a dose of his chronic anticoagulation. I do not have prior studies for comparison currently and was not able to directly speak to his primary care provider in [place] today. He is known to have previously had bilateral PEs but this was sometime ago rather than recently making it challenging to know at this point in time. With recent travel acute PE possibility has to be managed. Pneumonia within differential particularly with bilateral lower lobe consolidations although this could be areas of atelectasis. With bronchial wall thickening acute bronchitis another consideration. PCR for COVID, influenza and RSV were all negative so organism would be unknown. He not showing evidence of severe sepsis at admission nor hemoodynamic instability currently, though with sedation has had some lower blood pressures. (17) Pneumonia: Organism unknown, bilateral lower loves, present on admission, on antibiotics orally prior to admission, history of ESBL Klebsiella. (18) Sleep apnea: Uses CPAP at home with oxygen at night. Some difficulty with set up Thursday night. Not usually onoxygen during day. (19) Bladder dysfunction: On fesoterodine and vibegron, gets botox in bladder Plan #Vent dependent respiratory failure secondary to hypoxemia and hypercapnia?resolved #Bilateral pulmonary emboli #Possible bilateral lower lobe pneumonia versus atelectasis #Obstructive sleep apnea #History of COPD #Type 2 diabetes mellitus #Atrial fibrillation #Hypertension #Hypothyroidism #GERD #History of prostate cancer #Bladder dysfunction #History of GI bleed #History of ESBL #CKD stage II 03/26 ? Patient extubated to BiPAP on 03/22. Currently on 3L nasal cannula. - await cultures?so far negative to date. - continue levothyroxine - continue accucheck q6h - low dose intensity SSI - continue allopurinol - continue aspirin 81 daily, -Switch to Protonix oral. - patient will need to be discharged on lovenox q12h at this time - he apparently missed one dose of xarelto - PCP to decide on further management for anticoagulation?PCP updated over the phone regarding patient's hospital stay on 03/25. - duoneb q6h scheduled -Solu-Medrol 40 once a day for 1 more day. Will stop medication tomorrow. ? Vancomycin and Zosyn were stopped at day 5. De-escalated to ceftriaxone azithromycin. Levaquin switched to oral at this point. Will complete total 10- day course. Antibiotics to be stopped on March 30. ? Denies hematuria, hemoptysis ? Home oxygen evaluation completed. Patient qualifies for 3 L. Physical therapy has evaluated the patient. Patient will need home exercise program. Patient will be going back to [place] via air ambulance secondary to his requirement of continuous oxygen. PCP updated. He will need meds to beds. Blood cultures, sputum culture are all negative to date at this time. Blood pressure elevated. Hydrochlorothiazide valsartan combination restarted. Steroids contributing to hypertension. Will wean off by tomorrow. Will increase losartan to 50 mg daily at this time. Attestations 2 Medical Necessity Statement*: Plan for discharge in next 24 hours after air ambulance transportation is set up. 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
[2024-03-26 12:25] LABS: Glucose Point of Care 149 mg/dL (70-110)
[2024-03-26] MEDS: FUROsemide 10 mg/mL SDV 2mL 20 MG IVP (12:37)
[2024-03-26] MEDS: metoclopramide 10 mg Tablet 5 MG PO ×3 (12:48→21:30)
[2024-03-26] MEDS: insulin lispro 100 unit/1 mL SUBCUT ×3 (12:50→21:38)
[2024-03-26 17:14] LABS: Glucose Point of Care 161 mg/dL (70-110)
[2024-03-26] MEDS: levoFLOXacin 750 mg Tablet PO (17:37)
[2024-03-26] MEDS: GEMTESA 75 MG 75 EACH PO (17:38)
[2024-03-26] MEDS: TOVIAZ 8 MG 8 EACH PO (17:38)
--- NOTE | 2024-03-26 19:28 | PC.NURSE ---
Patient's emergency air team called and reported they would be here at 1105 Tuesday 03/27. Dr. Shaw notified via Voal[employer].
[2024-03-26 20:49] LABS: Glucose Point of Care 209 mg/dL (70-110)
[2024-03-26] MEDS: sennosides 8.6 mg Tablet 17.2 MG PO (21:29)
[2024-03-26] MEDS: aspirin 81 mg EC Tablet PO (21:29)
[2024-03-26] MEDS: atorvastatin 40 mg Tablet 80 MG PO (21:29)
[2024-03-27] VITALS: PULSE 81; RESP 24; O2SAT 97
[2024-03-27] MEDS: dilTIAZem 30 mg Tablet PO ×2 (00:21→06:22)
[2024-03-27 03:32] LABS: Anion Gap 11.4 (5-19); Blood Urea Nitrogen 39 mg/dL (8-23); Calcium 9.8 mg/dL (8.5-10.5); Carbon Dioxide 27 mmol/L (22-29); Chloride 105 mmol/L (98-107); Creatinine Clr Calc Pharmacy 113.8878; Glucose 125 mg/dL (65-115); Osmolality Calculated 299 mOsm/kg (285-295); Potassium 4.4 mmol/L (3.5-5.1); Sodium 139 mmol/L (136-145)
[2024-03-27 04:30] VITALS: BP 114/93; PULSE 70; RESP 15; TEMP 36.8; O2SAT 99
[2024-03-27 05:12] VITALS: PULSE 83
[2024-03-27] MEDS: levothyroxine 125 mcg Tablet 250 MCG PO (06:22)
[2024-03-27] MEDS: hydroCHLOROthiazide 25 mg Tablet 12.5 MG PO (06:22)
[2024-03-27] MEDS: levoFLOXacin 750 mg Tablet PO (06:23)
[2024-03-27] MEDS: losartan 50 mg Tablet PO (06:23)
[2024-03-27 06:46] LABS: Glucose Point of Care 127 mg/dL (70-110)
[2024-03-27] MEDS: budesonide 0.5 mg/2 mL Neb INHALATION (07:40)
[2024-03-27 07:41] VITALS: PULSE 77; RESP 16; O2SAT 97
[2024-03-27 08:00] VITALS: BP 144/98; PULSE 75; RESP 22; TEMP 36.3; O2SAT 100
[2024-03-27] MEDS: methylPREDNISolone sod succ 40 mg/mL INJ IVP (08:46)
[2024-03-27] MEDS: cefTRIAXone 1,000 mg SDV 1000 MG IVP (08:47)
[2024-03-27] MEDS: docusate sodium 100 mg Capsule PO (08:47)
[2024-03-27] MEDS: TOVIAZ 8 MG 8 EACH PO (08:47)
[2024-03-27] MEDS: gabapentin 300 mg Capsule 600 MG PO (08:47)
[2024-03-27] MEDS: azithromycin 250 mg Tablet 500 MG PO (08:47)
[2024-03-27] MEDS: pantoprazole DR 40 mg Tablet PO (08:47)
[2024-03-27] MEDS: carvedilol 3.125 mg Tablet PO (08:47)
[2024-03-27] MEDS: allopurinol 300 mg Tablet PO (08:47)
[2024-03-27] MEDS: fluticasone nasal spray 16gm Btl 2 SPRAY INTRANASAL (08:48)
[2024-03-27] MEDS: mupirocin oint 22 gm 1 APPLIC TOPICAL (08:48)
[2024-03-27] MEDS: enoxaparin 150 mg/mL Syringe 140 MG SUBCUT (09:26)
--- NOTE | 2024-03-27 10:36 | PC.NURSE ---
Report is given to the flight medical personal for his flight to [place], [place].
--- NOTE | 2024-03-27 10:38 | P.DS_ITS ---
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 (6) GERD (gastroesophageal reflux disease): Status: Chronic (7) Constipation: Status: Chronic (8) History of GI bleed: Status: Acute (9) History of prostate cancer: Status: Chronic (10) History of infection due to extended spectrum beta lactamase (ESBL) producing bacteria: Status: Acute Permanent problem details: klebsiella (11) COPD (chronic obstructive pulmonary disease): Status: Chronic (12) Acquired central alveolar hypoventilation syndrome: Status: Chronic (13) Respiratory failure with hypoxia and hypercapnia: Status: Acute (14) Ventilator dependent: Status: Acute (15) High risk medication use: Status: Chronic Permanent problem details: anticoagulation, ozempic, scheduled reglan (16) Acute respiratory failure: Status: Acute (17) Pneumonia: Status: Acute (18) Sleep apnea: Status: Chronic Permanent problem details: uses cpap with oxygen at night (19) Bladder dysfunction: Status: Chronic Reason for Visit Reason for Visit: weakness Hospital Course Hospital Course Patient was admitted for hypercapnic hypoxic respiratory failure and was intubated in the ER. Was diagnosed with bilateral subsegmental pulmonary embolism with bilateral lower lobe pneumonia. He also had a mild SHARON. Patient was able to be extubated within 24 hours. He was extubated to BiPAP on 03/22. Blood cultures, sputum cultures negative to date. There was suspicion of patient missing 1 dose of Xarelto however not sure therefore was placed on therapeutic Lovenox and will be discharged on the same. PCP to decide on further anticoagulation choice. Hemoglobin has remained stable. SHARON is resolved. Patient was given vancomycin and Zosyn for 5 days at which point antibiotics were de-escalated to ceftriaxone and azithromycin and levaquin till Mar 27. He will be discharged home on augmentin 875 bid for 3 more days. Plan to complete a 10-day course. Antibiotics to be stopped on March 30. Patient did have a home oxygen evaluation performed and qualified for 3 L. Due to recent intubation, history of COPD, new oxygen requirement of 3 L and bilateral subsegmental PEs patient was recommended against commercial air travel for at least 2 to 3 weeks. He will be going back to [place] via air ambulance. Patient was also evaluated by physical therapy and qualified for home exercise program. Some of his medications were readjusted. Please see attached med rec. Carvedilol was reduced to 3.125 twice daily, diltiazem 120 daily extended release, gabapentin 600 3 times daily. Potassium switch to 10 mill equivalent daily. Xarelto was stopped. At time of discharge meds to beds were ordered however patient could not get several of his home medications to our pharmacy due to them being unavailable. Will be calling them in to his pharmacy at [place]. He was given Lovenox shots for another 3 doses to take with until he gets to [place]. His antibiotics and rest of medications will be called into a [place] pharmacy. Copy of this discharge summary will be faxed over to his primary care doctor's office. Discussed with patient at time of discharge and he demonstrated understanding of all the above. He will be discharged in stable condition. Patient's PCP was updated over the phone with patients hospital course. Physical Exam Narrative: General: AOx3. HEENT: Normocephalic, atraumatic, EOMI, 2 L nasal cannula Cardio: Normal S1-S2, no gross murmurs. Respiratory: Good bilateral air entry, no wheezes no rhonchi appreciated GI: Abdomen soft, nontender, nondistended, bowel sounds + Behavior: Appropriate and cooperative Extremities: No edema bilateral lower extremities Urinary Catheter Management: Rg: Cath Placed During This Visit: yes, but has since been removed by the nurse Reason for Continuing Indwelling Catheter: Decision to DC Catheter Urinary Catheter Date of Insertion: 03/21/24 Urinary Catheter Time of Insertion: 11:33 Date Urinary Catheter Removed: 03/23/24 Time Urinary Catheter Discontinued: 11:07 Discharge Data Studies Completed and Pending Completed Studies During Hospitalization Category Date Time Status CT angio chest PE protcl [id number] Stat Cat Scan 03/21/24 12:00 Completed CXRP [XR chest 1V portable [id number]] Routine Exams 03/22/24 06:00 Completed XR chest 1V portable [id number] Routine Exams 03/26/24 11:00 Completed XR chest 1V portable [id number] Stat Exams 03/21/24 10:16 Completed XR chest 1V portable [id number] Stat Exams 03/21/24 19:12 Completed CV. echo complete* [id number] Routine Ultrasound 03/21/24 16:11 Completed US venous duplex lower extremity bilat [CV venous Ultrasound 03/22/24 17:18 [place] [id number]] Routine Radiology Impressions Chest CTA 03/21/24 12:00 IMPRESSION: 1. Difficult evaluation of the pulmonary arterial system due to motion and extensive streak artifact. Small occlusive pulmonary emboli are highly suspected in the bilateral lower lobe subsegmental branches and I question small occlusive emboli in the right upper lobe subsegmental branches. 2. Question trace bilateral pleural effusions. 3. Consolidations in the bilateral lower lobes. Combination of atelectasis and/or pneumonia should be considered. 4. Bilateral bronchial wall thickening. Acute/chronic bronchitis or reactive airways disease in the differential. 5. Suggestion of mild right heart strain. ADDENDUM: 03/21/24 [id number] I was informed by the [facility] team that CARLITO RAMOS has the report and has no further questions. Chest X-Ray 03/26/24 11:00 IMPRESSION: Mild left basilar subsegmental atelectasis. Lungs are otherwise clear. Laboratory Results WBC 8.30 10^3/uL (3.29-11.43) 03/26/24 03:28 RBC 3.40 10^6/uL (3.85-5.65) L 03/26/24 03:28 Hgb 10.70 g/dL (11.27-16.99) L 03/26/24 03:28 Hct 33.5 % (37-53) L 03/26/24 03:28 MCV 98.5 fl (82-101) 03/26/24 03:28 MCH 31.5 pg (27-33) 03/26/24 03:28 MCHC 31.9 g/dL (30-55) 03/26/24 03:28 RDW 14.7 % (12.1-15.1) 03/26/24 03:28 Plt Count 188 10^3/cmm (157-399) 03/26/24 03:28 MPV 11.4 fL (7.4-10.4) H 03/26/24 03:28 Neut % (Auto) 81.2 % 03/26/24 03:28 Lymph % (Auto) 5.1 % 03/26/24 03:28 Hinds % (Auto) 13.1 % 03/26/24 03:28 Eos % (Auto) 0.0 % 03/26/24 03:28 Baso % (Auto) 0.1 % 03/26/24 03:28 Neut # (Auto) 6.74 10^3/uL (1.8-7.7) 03/26/24 03:28 Lymph # (Auto) 0.4 10^3/uL (0.8-4.8) L 03/26/24 03:28 Hinds # (Auto) 1.1 10^3/uL (0.2-0.9) H 03/26/24 03:28 Eos # (Auto) 0.0 10^3/uL (0.0-0.8) 03/26/24 03:28 Baso # (Auto) 0.0 10^3/uL (0.0-0.1) 03/26/24 03:28 Nucleated RBC % (auto) 0 % 03/26/24 03:28 Nucleated RBCs # 0.0 /100WBC 03/26/24 03:28 Specimen Type Arterial 03/22/24 04:40 Sample Site Radial, right 03/22/24 04:40 ABG pH 7.33 (7.35-7.45) L 03/22/24 04:40 ABG pCO2 49.0 mmHg (35-45) H 03/22/24 04:40 ABG pO2 96.1 mmHg (80.0-100.0) 03/22/24 04:40 ABG PO2/FiO2 Ratio 192 03/22/24 04:40 ABG HCO3 26.0 mmol/L (22-26) 03/22/24 04:40 ABG O2 Saturation 91.0 03/21/24 14:58 ABG Base Excess -0.6 mmol/L (-2.0-2.0) 03/22/24 04:40 Lyndon Test Pos 03/22/24 04:40 A-a O2 Gradient 30.7 mmHg (5-10) H 03/21/24 14:58 Hematocrit 44.3 % (42-52) 03/22/24 04:40 Hgb O2 Saturation 89.2 % (95-100) L 03/21/24 14:58 Carboxyhemoglobin 1.0 %THgb (0.4-20.1) 03/21/24 14:58 Methemoglobin 1.0 % (0.4-1.5) 03/21/24 14:58 Total Hemoglobin 10.8 g/dL (14-18) L 03/21/24 14:58 Sodium 141.0 mmol/L (131-143) 03/21/24 14:58 Potassium 3.5 mmol/L (3.5-5.0) 03/21/24 14:58 Glucose 108.0 mg/dL (70-115) 03/21/24 14:58 Ionized Calcium 1.3 mmol/L (1.1-1.4) 03/21/24 14:58 O2 Delivery Device Vent 03/22/24 04:40 FiO2 50.0 % 03/22/24 04:40 Tidal Volume 0.50 03/22/24 04:40 PEEP 8.0 cmH20 03/22/24 04:40 Casting Plug Assembler ID Koffi 03/22/24 04:40 Sodium 139 mmol/L (136-145) 03/27/24 02:52 Potassium 4.4 mmol/L (3.5-5.1) 03/27/24 02:52 Chloride 105 mmol/L (98-107) 03/27/24 02:52 Carbon Dioxide 27 mmol/L (22-29) 03/27/24 02:52 Anion Gap 11.4 (5-19) 03/27/24 02:52 BUN 39 mg/dL (8-23) H 03/27/24 02:52 Creatinine 0.8 mg/dL (0.7-1.2) 03/27/24 02:52 GFR Calculation Not Reportable 03/27/24 02:52 Glucose 125 mg/dL (65-115) H 03/27/24 02:52 POC Glucose 127 mg/dL (70-110) H 03/27/24 06:20 Calculated Osmolality 299 mOsm/kg (285-295) H 03/27/24 02:52 Lactic Acid 2.2 mmol/L (0.5-2.2) 03/21/24 11:05 Lactic Acid (Sepsis) 0.8 mmol/L (0.5-2.2) 03/21/24 13:59 Uric Acid 4.3 mg/dL (3.4-7.0) 03/22/24 03:39 Calcium 9.8 mg/dL (8.5-10.5) 03/27/24 02:52 Phosphorus 4.3 mg/dL (2.5-4.5) 03/22/24 03:39 Magnesium 2.3 mg/dL (1.7-2.3) 03/24/24 04:11 Total Bilirubin 0.3 mg/dL (0.15-1.2) 03/22/24 03:39 AST 47 U/L (0-40) H 03/22/24 03:39 ALT 60 U/L (0-41) H 03/22/24 03:39 Alkaline Phosphatase 130 U/L (40-130) 03/22/24 03:39 Creatine Kinase 131 U/L (39-308) 03/21/24 10:50 Troponin T Baseline 52 ng/L (0-15) H 03/21/24 10:50 Troponin T 120 Minute 49.58 ng/L (0-15) H 03/21/24 12:51 Delta Troponin T -2.42 ABS# (0-10) L 03/21/24 12:51 Troponin T Hi Sens 6Hr 44.75 ng/L (0-15) H 03/21/24 17:12 Troponin T Hi Sens 6Hr Delta -7.25 ng/L (0-12) L 03/21/24 17:12 NT-Pro-B Natriuret Pep 3674 pg/mL (0-450) H 03/21/24 10:50 Total Protein 6.4 g/dL (6.6-8.7) L 03/22/24 03:39 Albumin 3.8 g/dL (3.5-5.2) 03/22/24 03:39 Globulin 2.6 g/dL (1.3-4.6) 03/22/24 03:39 Lipase 50 U/L (13-60) 03/21/24 10:50 Urine Color Yellow (Yellow) 03/21/24 11:24 Urine Appearance Clear (CLEAR) 03/21/24 11:24 Urine pH 6.5 (5-7) 03/21/24 11:24 Ur Specific Lebo 1.015 (1.005-1.030) 03/21/24 11:24 Urine Protein 1+ (Negative) H 03/21/24 11:24 Urine Glucose (UA) 3+ (Normal) H 03/21/24 11:24 Urine Ketones Negative (Negative) 03/21/24 11:24 Urine Blood Neg (Negative) 03/21/24 11:24 Urine Nitrate Negative (Negative) 03/21/24 11:24 Urine Bilirubin Neg (Negative) 03/21/24 11:24 Urine Urobilinogen Norm mg/dL (Negative) 03/21/24 11:24 Ur Leukocyte Esterase Negative (Negative) 03/21/24 11:24 Urine RBC 0-2 /hpf (0-2) 03/21/24 11:24 Urine WBC 0-5 /hpf (0-5) 03/21/24 11:24 Ur Squamous Epith Cells 0-5 /hpf (0-5) 03/21/24 11:24 Amorphous Sediment Not Reportable 03/21/24 11:34 Urine Bacteria None seen /hpf (NONE) 03/21/24 11:24 Hyaline Casts 5.36 /lpf 03/21/24 11:24 Ur Random Potassium 46 mmol/L 03/21/24 11:24 Vancomycin Trough 15.6 ug/mL (10-15) H 03/23/24 05:21 Serum Ketones Negative (Negative) 03/21/24 11:05 Coronavirus (PCR) Negative (Negative) 03/21/24 11:58 Influenza A (PCR) Negative (Negative) 03/21/24 11:58 Influenza Type B (PCR) Negative (Negative) 03/21/24 11:58 RSV (PCR) Negative (Negative) 03/21/24 11:58 Blood Type A Positive 03/22/24 03:39 Rho(D) Type Rh positive 03/22/24 03:39 Antibody Screen Negative 03/22/24 03:39 Vitals Last Vital Signs Temp 97.4 F L 03/27/24 08:00 Pulse 75 03/27/24 08:00 Resp 22 H 03/27/24 08:00 BP 144/98 03/27/24 08:00 Pulse Ox 100 03/27/24 08:00 O2 Del Method BiPAP 03/27/24 08:00 O2 Flow Rate 2 03/27/24 07:41 FiO2 35 03/27/24 00:00 Discharge Plan Discharge Patient Disposition: Home Condition: Stable Prescriptions: New carvedilol 3.125 mg Tablet 3.125 mg PO BID@ Qty: 28 0RF enoxaparin 150 mg/mL Syringe 140 mg SUBCUT Q12H Qty: 30 0RF gabapentin 600 mg tablet 600 mg PO TID Qty: 40 0RF diltiazem HCl 120 mg capsule,extended release 24 hr 120 mg PO DAILY Qty: 15 0RF amoxicillin-pot clavulanate 875-125 mg tablet 1 tab PO BID Qty: 6 0RF carvedilol 3.125 mg tablet 3.125 mg PO BID Qty: 30 0RF Rx Instructions: must administer with a meal/food diltiazem HCl 120 mg capsule,extended release 24 hr 120 mg PO DAILY Qty: 14 0RF Lovenox 150 mg/mL syringe 149 mg SUBCUT DAILY Qty: 14 0RF gabapentin 600 mg tablet 600 mg PO TID Qty: 30 0RF Continued oxycodone-acetaminophen 10-325 mg tablet 1 tab PO Q4H PRN (Reason: Pain) fluticasone propionate 50 mcg/actuation spray,suspension 2 spray INTRANASAL DAILY amoxicillin 500 mg Capsule 2,000 mg PO DIRECTED PRN (Reason: before denatl procedures) Rx Instructions: take 4 capsules prior to dental procedures as premedication alprazolam 0.5 mg Tablet 0.5 mg PO BEDTIME PRN (Reason: Sleep) albuterol sulfate 2.5 mg /3 mL (0.083 %) Solution For Nebulization 2.5 mg INHALATION QID PRN (Reason: Shortness Of Breath) Qty: 30 0RF acetazolamide 500 mg capsule, extended release 500 mg PO DAILY PRN (Reason: high altitude/airplane travel) Qty: 10 0RF famotidine 40 mg tablet 40 mg PO QPM Qty: 15 0RF docusate sodium 50 mg Capsule See Rx Instructions .ROUTE .COMPLEX Qty: 20 0RF Rx Instructions: 100mg in am, 50mg in evening aspirin 81 mg Tablet,Delayed Release (Dr/Ec) 81 mg PO BEDTIME Qty: 15 0RF valsartan-hydrochlorothiazide 80-12.5 mg tablet 1 tab PO QAM Qty: 15 0RF ferrous sulfate 325 mg (65 mg iron) Tablet 325 mg PO BID@08,12 Qty: 28 0RF levothyroxine 125 mcg tablet 250 mcg PO QAM Qty: 15 0RF allopurinol 300 mg tablet 300 mg PO DAILY Qty: 15 0RF albuterol sulfate 90 mcg/actuation Hfa Aerosol Inhaler 2 puff INHALATION QID PRN (Reason: Sleep) Qty: 8.5 0RF Rx Instructions: 1-3 tabs at bedtime as needed colchicine 0.6 mg Tablet 0.3 mg PO DAILY PRN (Reason: gout) Qty: 10 0RF senna 8.6 mg Capsule 17.2 mg PO BEDTIME Qty: 15 0RF Rx Instructions: 4 times per week Vitamin D3 50 mcg (2,000 unit) Capsule 50 mcg PO DAILY Qty: 15 0RF Fiber Gummies 2 gram Tablet,Chewable 4 g PO DAILY Qty: 15 0RF Trelegy Ellipta 100-62.5-25 mcg blister with device 1 inh INHALATION DAILY Qty: 1 0RF Gemtesa 75 mg tablet 75 mg PO BEDTIME Qty: 15 0RF quetiapine 25 mg tablet 25 mg PO BEDTIME Qty: 15 0RF rosuvastatin 40 mg tablet 40 mg PO BEDTIME Qty: 15 0RF fesoterodine 8 mg tablet extended release 24 hr 8 mg PO DAILY Qty: 20 0RF Ozempic 0.25 mg or 0.5 mg (2 mg/3 mL) pen injector 0.25 mg SUBCUT Q7D Qty: 1 0RF metformin 500 mg tablet 500 mg PO QID Qty: 30 0RF metoclopramide HCl 5 mg tablet 5 mg PO TID Qty: 45 0RF Rx Instructions: lunch, dinner and bedtime torsemide 20 mg tablet 20 mg PO QAM Qty: 15 0RF omeprazole 40 mg capsule,delayed release(DR/EC) 40 mg PO DAILY Qty: 15 0RF Changed potassium citrate 10 mEq (1,080 mg) tablet extended release 10 meq PO DAILY Qty: 15 0RF Discontinued gabapentin 600 mg tablet 600 mg PO QID carvedilol 12.5 mg tablet 12.5 mg PO BID diltiazem HCl 240 mg capsule,extended release 24hr 240 mg PO DAILY fluocinonide 0.05 % ointment 1 applic TOPICAL BID PRN (Reason: atopic dermatitis) Rx Instructions: 3 times per week cephalexin 500 mg capsule 500 mg PO TID Rx Instructions: for skin infection after fall mupirocin 2 % ointment 1 applic TOPICAL BID Jardiance 10 mg tablet 10 mg PO DAILY A-Reds2 1 tab PO BID polyethylene glycol 3350 [Miralax] 17 gram Powder In Packet 17 g PO DAILY PRN (Reason: Constipation) simethicone [Gas Relief Maximum Strength] 125 mg Capsule 250 mg PO BEDTIME cyanocobalamin (vitamin B-12) [Vitamin B-12] 1,000 mcg Tablet 1,000 mcg PO DAILY zinc gluconate 50 mg Tablet 50 mg PO DAILY@12 ipratropium bromide 42 mcg (0.06 %) [place],Non-Aerosol 2 spray INTRANASAL BID Rx Instructions: administer into each nostril Centrum Silver Tablet 1 tab PO DAILY diclofenac sodium [Voltaren] 1 % Gel 2 g TOPICAL QID PRN (Reason: neuropathy pain) Rx Instructions: apply to single elbow, wrist or hand; for hand includes palm/fingers/back of hand Systane Complete 0.6 % Drops 1 drp OPHTHALMIC (EYE) BID PRN (Reason: itchy yes) rivaroxaban 20 mg Tablet 20 mg PO QPM Rx Instructions: must administer with evening meal IBgard 90 mg Capsule,Delayed,Extend.Release 180 mg PO .DINNER milk thistle seed extract 250 mg Capsule 250 mg PO TID Rx Instructions: give with meal/snack Magnesium Citrate Gummie 204 mg PO DAILY Rx Instructions: two 102mg gummies daily Vitamin C Gummie 750 mg PO DAILY@12 Discharge Orders: Discharge Order (Routine); Ordered 03/27/24 Ordered By: Frances Shaw Discharge Diet: Cardiac and Diabetic Discharge Activity: Increase activity as tolerated, Use walker/crutches as instructed, As per PT/OT instructions and Oxygen as instructed Patient Instructions: Diltiazem (By mouth) (Cardizem, Cardizem CD, Cardizem LA, Cardizem SR), Gabapentin (By mouth), Enoxaparin (By injection) (Lovenox), Carvedilol (By mouth) (Coreg, Coreg CR, Hypertenevide-12.5), A-fib (Atrial Fibrillation) (DC), Pulmonary Embolism (DC), Hypertension (DC), Opioid Safety Activity Restrictions/Additional Instructions: Please follow up with your PCP at the earliest possible. We will fax him a copy of your discharge summary. Please note all medication adjustments that have been made. 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
[2024-03-27 10:57] VITALS: BP 144/98; PULSE 75; RESP 22; TEMP 36.3; O2SAT 100
--- NOTE | 2024-03-27 11:00 | PC.NURSE ---
Patient is sent with 3 140mg lovenox shots (one for and two for Thursday) per Dr Shaw. Local pharmacy did not have in stock and would not be able to have for him until Thursday. We sent 3 from hospital stock, per Dr. Shaw, patient and his son were instructed on how to administer. 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 His local pharmacy in [place], [place] will have some in stock sometime Thursday for him. Patient's pharmacy in [place], [place], Public pharmacy is called to verify his medications.
--- NOTE | 2024-03-27 11:09 | PC.NURSE ---
Patient left with a right AC IV lock, for the flight medics. The flight medics are going to pull his IV lock with they get him home to [place], [place]. They requested it stay in for emergency.
--- NOTE | 2024-03-27 14:17 | PC.NURSE ---
Patient's discharge summary is faxed to Dr. Rose's office in [place], [place], patients PCP, fax number [phone], per Dr. Shaw. [facility] is called and discharge medications are confirmed with the pharmacist. They will have all of his medications available for him tomorrow.
== END 2024-03-27 11:08 | disposition home or self-care (01) | DRG 208 ==
LOC: ER 13:45 → ICU 14:11 → CSU 03-23 14:48
PROVIDERS: Admitting Provider Hospitalist; Emergency Provider Family Medicine; Visit Provider Internal Medicine
DX: I26.99 Other pulmonary embolism without acute cor pulmonale (principal); J18.9 Pneumonia, unspecified organism; J96.21 Acute and chronic respiratory failure with hypoxia; J96.22 Acute and chronic respiratory failure with hypercapnia; J44.1 Chronic obstructive pulmonary disease with (acute) exacerbation; J44.0 Chronic obstructive pulmonary disease with (acute) lower respiratory infection; I48.20 Chronic atrial fibrillation, unspecified; I48.92 Unspecified atrial flutter; N17.9 Acute kidney failure, unspecified; G47.30 Sleep apnea, unspecified; E11.40 Type 2 diabetes mellitus with diabetic neuropathy, unspecified; K21.9 Gastro-esophageal reflux disease without esophagitis; Z96.653 Presence of artificial knee joint, bilateral; Z96.652 Presence of left artificial knee joint; E03.9 Hypothyroidism, unspecified; E06.3 Autoimmune thyroiditis; N31.9 Neuromuscular dysfunction of bladder, unspecified; E11.22 Type 2 diabetes mellitus with diabetic chronic kidney disease; I12.9 Hypertensive chronic kidney disease with stage 1 through stage 4 chronic kidney disease, or unspecified chronic kidney disease; N18.2 Chronic kidney disease, stage 2 (mild); K59.00 Constipation, unspecified; Z79.01 Long term (current) use of anticoagulants; Z87.19 Personal history of other diseases of the digestive system; Z86.19 Personal history of other infectious and parasitic diseases; Z79.82 Long term (current) use of aspirin; Z79.890 Hormone replacement therapy; Z79.899 Other long term (current) drug therapy; Z88.8 Allergy status to other drugs, medicaments and biological substances; Z85.828 Personal history of other malignant neoplasm of skin; Z85.46 Personal history of malignant neoplasm of prostate
CPT/HCPCS: 0241U; 36415; 36416; 36600; 51702; 71045; 71275; 80048; 80051; 80053; 80202; 81003; 81015; 82009; 82330; 82550; 82803; 82805; 82962; 83605; 83690; 83735; 83880; 84100; 84133; 84484; 84550; 85025; 86850; 86900; 87040; 87070; 87205; 93005; 93306; 93970; 94002; 94003; 94640; 94660; 94664; 94760; 94799; 96365; 96366; 96372; 96375; 96376; 97110; 97116; 97162; 97530; 99291; 99292; J0330; J0696; J1650; J1815; J1940; J1956; J2250; J2470; J2543; J2704; J2919; J3010; J3370; J3490; J7030; J7626; J8597; Q0144